=== PATIENT | male | born 1970 | race Caucasian/White ===

== ENCOUNTER → 2018-03-12 | Outpatient (CLI) | payer OTHER | LOC: M.CT 14:40 | DX: R10.9 Unspecified abdominal pain (principal) ==

== ENCOUNTER 2021-08-21 23:47 | Inpatient (IN) | payer OTHER ==
[~2021-08-21] VITALS: Ht 182.9 cm; Wt 94.4 kg
[2021-08-21 23:53] VITALS: BP 138/83
[2021-08-21] MEDS ORDERED: NOHOMEMEDICATIONS (23:58)
[2021-08-21] MEDS ORDERED: ALBUTEROL2.5 MG/0.1 INH (23:59)
[2021-08-22 00:27] LABS: ABSOLUTE LYMPHOCYTES 0.4 thou/uL (0.8-5.3); ABSOLUTE MONOCYTES 0.6 thou/uL (0.0-1.2); ABSOLUTE NEUTROPHILS 2.8 thou/uL (1.6-8.1); BASOPHILS 0.2 %; HEMATOCRIT 51.7 % (42.0-52.0); HEMOGLOBIN 17.5 gm/dL (14.0-18.0); LYMPHOCYTES 10.7 %; MCH 29.7 pg (26.0-34.0); MCHC 33.9 g/dL (28.0-37.0); MCV 87.7 fL (80.0-100.0); MONOCYTES 15.1 %; MPV 6.5 fl. (7.2-11.1); NUCLEATED RBCS 0 /100WBC; PLATELET COUNT* 148 thou/uL (150-400); RBC 5.89 mil/uL (4.50-6.00); RDW-CV 13.6 % (10.5-14.5); WBC 3.8 thou/uL (4.0-11.0)
[2021-08-22 00:40] LABS: CALCIUM 8.2 mg/dL (8.5-10.1); CREATININE 1.5 mg/dL (0.6-1.3); POTASSIUM 4.4 mmol/L (3.5-5.1)
[2021-08-22 00:44] LABS: ALBUMIN 3.2 g/dL (3.4-5.0); MAGNESIUM 2.1 mg/dL (1.8-2.4); TOTAL BILIRUBIN 0.7 mg/dL (<0.1-1.0); TOTAL PROTEIN 7.1 g/dL (6.4-8.2)
[2021-08-22 00:44] LABS: URINE BILIRUBIN NEGATIVE (Negative); URINE BLOOD 3+ (Negative); URINE COLOR YELLOW; URINE GLUCOSE-RANDOM NEGATIVE (Negative); URINE KETONES 2+ (Negative); URINE LEUKOCYTES-REFLEX NEGATIVE (Negative); URINE NITRITE-REFLEX NEGATIVE (Negative); URINE PROTEIN 2+ (Negative); URINE SPECIFIC GRAVITY 1.025 (1.005-1.030)
[2021-08-22 00:45] LABS: URINE CLARITY SL HAZY
[2021-08-22 00:51] LABS: INFLUENZA A ANTIGEN Negative (Negative); INFLUENZA B ANTIGEN Negative (Negative)
[2021-08-22 00:54] LABS: BACTERIA-REFLEX >30 Many /HPF (None Seen); CASTS None Seen /LPF (None Seen); MUCUS 4-6 Moderate strn/LPF (None Seen); SQUAMOUS 0-3 Few /LPF (0-3); URINE WBC-REFLEX 6-15 Few /HPF (0-5); WBC CLUMPS Few (None Seen)
[2021-08-22 00:55] LABS: CRYSTALS None Seen /LPF (None Seen)
[2021-08-22 01:37] LABS: BE 0.7 mmol/L (-2 to +3); PCO2 35.6 mmHg (35.0-45.0); PO2 64.4 mmHg (75.0-100.0); pH 7.449 (7.340-7.450)
--- NOTE | 2021-08-22 01:57 | NUR ---
WITINESSED WITH DR BRIDGES PT STATING THAT HE DOES NOT WANT TO BE INTUBATED. DR BRIDGES ASKED IF SHE COULD DISCUSS DECISION WITH , HE STATED THAT IT DOESN'T MATTER WHAT SHE SAYS, ITS HIS DECISION.
[2021-08-22 05:40] VITALS: BP 130/82
[2021-08-22 06:30] VITALS: BP 151/97
--- NOTE | 2021-08-22 07:48 | NUR ---
RECEIVED REPORT FROM KENZIE COLÓN. PT TRANSFERRED TO 104. PT A&OX4. VSS. PIPE FITTINGS MOLDER IN PLACE. ADMISSION HISTORY & PHYSICAL ASSESSMENT COMPLETED AND CHARTED. PT ON BIPAP 100%. PT TRACING ST ON TELE. ORIENTED TO ROOM & CALL LIGHT. MAINTAINED ON ENHANCED PRECAUTIONS.
[2021-08-22 08:00] VITALS: BP 147/93
[2021-08-22 12:00] VITALS: BP 137/95
[2021-08-22 13:49] LABS: ABSOLUTE LYMPHOCYTES 0.4 thou/uL (0.8-5.3); ABSOLUTE MONOCYTES 0.2 thou/uL (0.0-1.2); ABSOLUTE NEUTROPHILS 2.3 thou/uL (1.6-8.1); BASOPHILS 0.1 %; HEMATOCRIT 50.6 % (42.0-52.0); HEMOGLOBIN 16.8 gm/dL (14.0-18.0); LYMPHOCYTES 14.5 %; MCH 29.5 pg (26.0-34.0); MCHC 33.3 g/dL (28.0-37.0); MCV 88.7 fL (80.0-100.0); MONOCYTES 8.1 %; MPV 6.7 fl. (7.2-11.1); NUCLEATED RBCS 1 /100WBC; PLATELET COUNT* 163 thou/uL (150-400); POLYS 77.3 %; RBC 5.71 mil/uL (4.50-6.00); RDW-CV 13.4 % (10.5-14.5)
--- NOTE | 2021-08-22 13:58 | NUR ---
CM ASSESSMENT ASSESSMENT COMPLETED WITH PT'S (MANOJ KELLER - [phone]).PT RESIDES WITH AND TWO CHILDREN. PT SEEKING TO RETURN HOME UPON DC. PT HAS NO HX OF DME. PT IS INDEPENDENTT WITH ADLS. PT HAS NO HX WITH REHAB, SKILLED OR SERVICES. PT NOT MEDICALLY CLEAR TO DC YET. CM TO CONTINUE TO FOLLOW FOR DC PLANNING NEEDS.
[2021-08-22 14:23] LABS: ALBUMIN 3.1 g/dL (3.4-5.0); CALCIUM 8.2 mg/dL (8.5-10.1); CREATININE 1.2 mg/dL (0.6-1.3); POTASSIUM 4.5 mmol/L (3.5-5.1); TOTAL BILIRUBIN 0.6 mg/dL (<0.1-1.0); TOTAL PROTEIN 6.7 g/dL (6.4-8.2)
--- NOTE | 2021-08-22 15:03 | NUR ---
Infection Control: Per [facility] Dept. patient has a positive Covid PCR test from 08/18/2021.
--- NOTE | 2021-08-22 15:30 | EKG ---
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1970 Requested By: Brisa Gutierrez Order Number: [id number] MD: Jet Condon Measurements Intervals [place] Rate: 119 P: 41 [place]: 138 QRS: -17 QRSD: 87 T: -8 QT: 288 QTc: 406 Interpretive Statements Sinus tachycardia Borderline left axis deviation Borderline T abnormalities, inferior leads Baseline wander in lead(s) I,III,aVR,aVL,V3 No previous ECG available for comparison Electronically Signed On 08-22-2021 15:30:38 MANAGER TRANSPORT by Jet Condon [email or web address] <ELECTRONICALLY SIGNED> By: Jet Condon MD, FACC 08/22/21 1530 2346 2346 Jet Condon MD, FACC /EPI
[2021-08-22 18:54] VITALS: BP 137/95
--- NOTE | 2021-08-22 19:53 | NUR ---
I ASSUMED CARE OF THE PATIENT AT 0700. HE IS ALERT AND ORIENTED X4 AND IS UP WITH SBC TO THE CHAIR AND COMMODE. BED IS IN THE LOW LOCKED POSITION AND CALL LIGHT IS IN REACH. ISOLATION IS MAINTAINED. BLOOD GLUCOSE IS MONITORED AND HE IS ENCOURAGED TO REPOSITION EVERY 2 HOURS. LOTS OF EDUCATION WAS DONE IN REGARDS TO OXYGENATION WITH SEJAL AND PATIENT AGREES TO USE IS AND MOVE AROUND THE ROOM. PRN MEDS ARE USED FOR PARTIAL RELIEF OF PAIN. HOURLY ROUNDING IS COMPLETED AND PATIENT NEEDS ARE MET. WE WERE BETWEEN THE HEATED HIGH FLOW AND BIPAP ALL DAY, ATTEMPTING TO ACHEIVE A SAT OF 90% OR GREATER. PATIENT HAD 3 LOOSE STOOLS TODAY. DIET WAS DOWNGRADED TO CLEAR UNTIL WE SEE HOW HE TOLERATES IT. REPEAT CHEST XRAY WAS COMPLETED. PCR AND MRSA SWABS WERE SENT. WILL CONTINUE TO MONITOR.
[2021-08-22 20:00] VITALS: BP 127/82
--- NOTE | 2021-08-22 21:35 | CON ---
[address] [address] CONSULTATION Name: DILIP KELLERBEN Room: [address] IN M.R.#: [id number] Admission: 08/22/21 Attend Phys: Dick Carmichael MD Discharge: Date of : 74 Report #: [id number] THIS REPORT FOR: cc: MADAI RICHARDSON NP, KATHERINE NP Pervez, Adeel MD ~ DATE OF CONSULTATION: 08/22/2021 REQUESTING PHYSICIAN: Dr. Murillo. INDICATION FOR CONSULTATION: Acute hypoxemic respiratory failure secondary to COVID-19. HISTORY OF PRESENT ILLNESS: This is a 50-year-old gentleman. He says that he is a lifetime nonsmoker. He is not vaccinated for COVID; however, in September, he was reported to have had COVID. The patient states that at that time he got remdesivir and had throat swelling when he was given remdesivir. He is now admitted again with COVID-19. He states that he had 2 outpatient tests for COVID performed, which were positive for antigen. Upon admission, he however is negative. He has been significantly short of breath. He has been coughing. He says he is bringing up thick yellow sputum. He earlier has been on BiPAP all night as he was not maintaining O2 saturation on a heated high-flow nasal cannula. We were able to take him off the BiPAP this morning; however, he continues to remain on 100% FiO2 with 50 liters flow and is barely oxygenating at 90-91% with this. He; however, does appear to be maintained with this therapy at this time. He does not have swelling of lower extremities. There is no calf pain. He reports that he had diarrhea as well as gagging and vomiting earlier. He does report that he had headaches and had nasal congestion. He reports having had fever and chills recently. He has had poor appetite and says that he feels weak. REVIEW OF SYSTEMS: For 12 points is negative except as mentioned above. PAST MEDICAL HISTORY: COVID in September of this year. Otherwise, unremarkable. SOCIAL HISTORY: Lifetime nonsmoker. No known history of heavy alcohol use or illegal drug use. CURRENT MEDICATIONS: List in [facility] reviewed. HOME MEDICATIONS: List in [facility] reviewed. ALLERGIES: The patient states that his throat swelled up and he [place] [address] CONSULTATION Name: DILIP KELLERBEN Room: [address] IN [facility]#: [id number] Admission: 08/22/21 Attend Phys: Dick Carmichael MD Discharge: Date of : 74 Report #: [id number] FAMILY HISTORY: No pertinent family history. PHYSICAL EXAMINATION: GENERAL: He is alert, awake and oriented. VITAL SIGNS: He is on 100% FiO2 with 55 liters flow, heated high-flow nasal cannula, O2 saturation has been varying between 90% and 94%, respiratory rate in the low 20s, heart rate is 80, blood pressure is 147/93. HEENT: Head is normocephalic and atraumatic. NECK: Does not show raised JVP, asymmetry, mass or lymph nodes. CHEST: Symmetrical expansion on inspection and palpation. On auscultation, breath sounds are bilaterally equal, but decreased. Expirations are prolonged, but I do not hear any added sounds. The patient was coughing between sentences when I examined him. HEART: Regular. There is no murmur. ABDOMEN: Soft and nontender. EXTREMITIES: Lower extremities show no edema and no calf tenderness. SKIN: Dry and intact. NEUROLOGIC: Moves all extremities bilaterally equally and spontaneously with no focal deficit identified. DIAGNOSTIC DATA: The patient did have a chest x-ray performed last night. I reviewed the same and I also repeated a chest x-ray now, there are extensive bilateral infiltrates consistent with COVID-19. There is also a dense infiltrate in the left lung base, which is suspicious of a secondary bacterial infection. LABORATORY DATA: The patient's lab work is in [facility], this is reviewed from last night. I ordered repeat labs now, which are pending. Creatinine last night was 1.5. The patient has received IV fluids since then. ASSESSMENT AND PLAN: 1. Acute hypoxemic respiratory failure secondary to COVID-19. For now, we will continue with BiPAP while asleep and as needed. We will keep him on heated high-flow nasal cannula otherwise. The patient; however, is requiring 100% FiO2 at this time and therefore there will be a possibility that he declines and requires endotracheal intubation. I discussed this with patient. He states that he does not want to be placed on the ventilator and does not believe in those. When asked if we feel that he is not likely to survive if not placed on the ventilator, whether he will want us to proceed, he states that he may change his mind at that point and we can ask him about it; however, he states that if we are not able to communicate with him and he wishes that we not put him on the ventilator, even in those circumstances. 2. COVID-19. THE PATIENT REPORTS ALLERGY TO REMDESIVIR. He does have some [facility] [address] [place] [address] CONSULTATION Name: DILIP KELLER Room: [address] IN M.R.#: [id number] Admission: 08/22/21 Attend Phys: Dick Carmichael MD Discharge: Date of : 74 Report #: [id number] bronchospasm as well and therefore I will increase his dexamethasone to 10 mg IV b.i.d. Recommend Actemra. Unfortunately, not available. I do not feel strongly either way regarding administering or holding off on convalescent plasma. 3. Extensive bilateral infiltrates. Considering his very high FiO2, I decided to broaden antibiotic coverage to cefepime, linezolid and azithromycin. We will do a sputum culture. Other cultures and serologies are also ordered. 4. Acute renal failure/fluid overload. I do not have baseline creatinine regardless suspicion is that the rise in creatinine last night to 1.5 is acute. I ordered repeat labs now and then we will decide as to whether we can give him Lasix. If there is still elevation in creatinine, then I will be inclined to obtain a renal ultrasound. 5. Bronchospasm. Dexamethasone increased to 10 q.12 hours, also on nebulized bronchodilators. I may in fact consider giving him additional steroid as well as he does appear to be bronchospastic. He is on cough suppressant medications. Continue other medications. However, decided to hold off on giving him narcotic if feasible due to very high FiO2. 6. Deep vein thrombosis prophylaxis. Agree with intermediate dose of Lovenox. 7. Gastrointestinal prophylaxis, Protonix. 8. Hyperglycemia, insulin sliding scale. The patient is critically ill at this time. Total time spent providing critical care to this patient today exceeds 41 minutes. <ELECTRONICALLY SIGNED> By: Spencer Ohara MD 08/22/21 2135 1229 1910Spencer Ohara MD /nt
[2021-08-23] VITALS: BP 145/88
[2021-08-23 02:06] LABS: GLYCOHEMOGLOBIN (HGB A1C) 5.4 % (4.8-5.6)
[2021-08-23 04:28] LABS: HEMATOCRIT 47.1 % (42.0-52.0); MCH 29.6 pg (26.0-34.0); MCV 87.2 fL (80.0-100.0); MPV 6.6 fl. (7.2-11.1); RBC 5.4 mil/uL (4.50-6.00); RDW-CV 13.4 % (10.5-14.5); WBC 5.9 thou/uL (4.0-11.0)
[2021-08-23 04:29] VITALS: BP 133/93
[2021-08-23 04:32] LABS: ALBUMIN 2.8 g/dL (3.4-5.0); CALCIUM 8.1 mg/dL (8.5-10.1); CREATININE 1.2 mg/dL (0.6-1.3); MAGNESIUM 2.3 mg/dL (1.8-2.4); POTASSIUM 4.3 mmol/L (3.5-5.1); TOTAL BILIRUBIN 0.6 mg/dL (<0.1-1.0); TOTAL PROTEIN 6.8 g/dL (6.4-8.2)
--- NOTE | 2021-08-23 07:57 | NUR ---
ASSUMED CARE OF PT AFTER REPORT AT 1930. PT A&OX4. VSS. PHYSICAL ASSESSMENT COMPLETED AND CHARTED. PT ON O2 HHFNC 100%/55L/BIPAP 70%. PT TRACING SR/ST ON TELE. PT UPSTANDBY TO BSC. CALL LIGHT WITHIN REACH.
[2021-08-23 08:00] VITALS: BP 134/82
[2021-08-23 11:30] VITALS: BP 139/88
--- NOTE | 2021-08-23 15:35 | NUR ---
CM FOLLOWUP PT NOT YET MEDICALLY CLEAR. PT COVID POSITIVE WITH WORSENING O2 NEEDS. WHEN MEDICALLY CLEAR, PT SEEKING DC HOME. CM TO FOLLOW FOR DC PLANNING NEEDS.
[2021-08-23 16:00] VITALS: BP 142/81
[2021-08-23 20:00] VITALS: BP 141/87
[2021-08-24] VITALS (14 sets, daily range): BP systolic 101–137; BP diastolic 55–86
[2021-08-24 05:44] LABS: MPV 7.5 fl. (7.2-11.1)
[2021-08-24 05:45] LABS: HEMATOCRIT 50.4 % (42.0-52.0); HEMOGLOBIN 16.7 gm/dL (14.0-18.0); MCH 29.5 pg (26.0-34.0); MCHC 33.1 g/dL (28.0-37.0); MCV 89.3 fL (80.0-100.0); NUCLEATED RBCS 0 /100WBC; RBC 5.64 mil/uL (4.50-6.00); RDW-CV 13.5 % (10.5-14.5); WBC 12.7 thou/uL (4.0-11.0)
[2021-08-24 06:00] LABS: ALBUMIN 2.9 g/dL (3.4-5.0); CALCIUM 8.3 mg/dL (8.5-10.1); CREATININE 1.2 mg/dL (0.6-1.3); MAGNESIUM 2.7 mg/dL (1.8-2.4); POTASSIUM 4.1 mmol/L (3.5-5.1); TOTAL BILIRUBIN 0.8 mg/dL (<0.1-1.0)
[2021-08-24 07:31] LABS: ABSOLUTE LYMPHOCYTES 0.3 thou/uL (0.8-5.3); ABSOLUTE MONOCYTES 0.9 thou/uL (0.0-1.2); ABSOLUTE NEUTROPHILS 11.6 thou/uL (1.6-8.1); PLATELET ESTIMATE ADEQUATE
[2021-08-24 07:32] LABS: PLATELET COUNT* 225 thou/uL (150-400)
--- NOTE | 2021-08-24 08:04 | NUR ---
ASSUMED CARE OF PT AFTER REPORT AT 1930. PT A&OX4. VSS. PHYSICAL ASSESSMENT COMPLETED AND CHARTED. PT ON HHFNC 100%/55L+NRB 15L/BIPAP 100%. PT STILL HAVONG COUGHING SPELL WITH EPISODES OF DESATURATION 70'S-80'S-DR BOOTH MADE AWARE WITH NEW ORDERS.CALL LIGHT WITHIN REACH.
--- NOTE | 2021-08-24 12:57 | NUR ---
Pt is now being transferred to ICU and will be placed on a vent. In team meeting it was requested that we provide DPOA paperwork before he is placed on the vent to see if he would like to complete to have someone make healthcare decisions for him. Due to patient being Covid + - provided paperwork to RN and he is to discuss with patient.
--- NOTE | 2021-08-24 15:35 | NUR ---
CM FOLLOWUP PT NOT YET MED CLEAR AND TRANSFERRED TO ICU FOR INTUBATION. PT COMPLETED DPOA AND LISTED MANOJ KELLER [phone]. CM TO FOLLOW.
[2021-08-24 17:25] LABS: BE 2.6 mmol/L (-2 to +3); PCO2 48.5 mmHg (35.0-45.0); PO2 82.3 mmHg (75.0-100.0); pH 7.389 (7.340-7.450)
--- NOTE | 2021-08-24 18:42 | NUR ---
PT RECEIVED ON ON 4L N/C. AOX4. NO COMPLAINTS OF PAIN. ORDERS PLACED FOR NUKEMED SCAN AND CT. AFTER TRANSPORT PT HAD UPPER AIRWAY GURGLING. NTS SUCTIONING DONE - BILLIOUS APPEARING SECRETIONS. PHYSCISIAN NOTIFIED AND AT BEDSIDE. SPOKE WITH PT REGARDING INTUBATION STATUS - SEE NOTE. ORDERS CHANGED TO DNI. PT PLACED ON BIPAP PER ORDER. THORACENTESIS ORDERED - UNABLE TO COMPLETE PER IR TEAM FLUID COLLECTION WAS TOO SMALL. ATTEMPTS MADE TO REACH FAMILY TO UPDATE ON PT CONDITION - NO RESPONSE. LOOSE GREEN BM, TACHY & V-PACED: TEAM NOTIFIED. UOP GOOD. POTASSIUM BEING REPLACED. WILL CONTINUE TO MONITOR.
[2021-08-24 23:06] LABS: MYCOPLASMA PNEUMONIA IgG 152 U/mL (0-99); MYCOPLASMA PNEUMONIA IgM <770 U/mL (0-769)
[2021-08-25] VITALS (41 sets, daily range): BP systolic 100–146; BP diastolic 43–91
--- NOTE | 2021-08-25 04:04 | NUR ---
ASSUMED CARE AT 1900H, ON VENT AT 100% AND TOLERATED. SEDATED WITH FENTANYL 100MICS AND PROPOFOL 40MICS. PT WITHDREW TO PAIN AND WILL HAVE A COUGHING FIT AFTER SUCTONING. HE TRIED TO REACH FOR HIS ETT. RESTRAIN WELL SECURED. NO FEVER AND NO DISTRESS. CONTINUE MONITORING AND TOWARDS GOALS.
--- NOTE | 2021-08-25 04:13 | NUR ---
UPDATE GIVEN TO AND SHE'S REQUESTING UPDATE FROM DOCTORS. SHE'S ALSO ASKING IF WHEN PT CAN BE OUT OF ISOLATION. ACCORDING TO HER, SHE'LL BE AVAILABLE THE WHOLE DAY.
[2021-08-25 05:45] LABS: ABSOLUTE LYMPHOCYTES 0.1 thou/uL (0.8-5.3); ABSOLUTE MONOCYTES 0.7 thou/uL (0.0-1.2); ABSOLUTE NEUTROPHILS 6.5 thou/uL (1.6-8.1); BASOPHILS 0.2 %; HEMATOCRIT 45.5 % (42.0-52.0); HEMOGLOBIN 15.1 gm/dL (14.0-18.0); LYMPHOCYTES 1.9 %; MCH 29.4 pg (26.0-34.0); MCHC 33.2 g/dL (28.0-37.0); MCV 88.6 fL (80.0-100.0); MONOCYTES 8.9 %; MPV 6.8 fl. (7.2-11.1); NUCLEATED RBCS 0 /100WBC; PLATELET COUNT* 263 thou/uL (150-400); RBC 5.13 mil/uL (4.50-6.00); RDW-CV 13.5 % (10.5-14.5); WBC 7.3 thou/uL (4.0-11.0)
[2021-08-25 06:01] LABS: PHOSPHORUS* 4.5 mg/dL (2.5-4.9)
[2021-08-25 06:02] LABS: ALBUMIN 2.5 g/dL (3.4-5.0); CALCIUM 7.8 mg/dL (8.5-10.1); CREATININE 1.5 mg/dL (0.6-1.3); MAGNESIUM 3.2 mg/dL (1.8-2.4); POTASSIUM 4.3 mmol/L (3.5-5.1); TOTAL BILIRUBIN 0.6 mg/dL (<0.1-1.0); TOTAL PROTEIN 6.3 g/dL (6.4-8.2)
[2021-08-25 08:41] LABS: BE 4.9 mmol/L (-2 to +3); PCO2 38.2 mmHg (35.0-45.0); pH 7.489 (7.340-7.450)
--- NOTE | 2021-08-25 09:16 | NUR ---
HSAWN Daly/Anil is assigned to pt for discharge planning needs if help required, Notified CM
--- NOTE | 2021-08-25 18:34 | NUR ---
RECIEVED REPORT FROM NAFISA SHARP RN. ETT 7.5 27 @LIP AND CONNECTED TO VENTILATOR. OGT CONNECTED TO LIS.. OGT AT 60CM. SANTIAGO INTACT AND PATENT DRAIING LAURA URINE TO BEDSIDE BAG. NSR ON MONITOR, MONITORS INTACT, NO ACUTE DISTRESS NOTED. 1600 PT PRONED ORDERED AND TOLERATED WELL. WILL CONTINUE TO MONITOR
[2021-08-26] VITALS (61 sets, daily range): BP systolic 108–154; BP diastolic 67–102
[2021-08-26 04:06] LABS: ABSOLUTE LYMPHOCYTES 0.2 thou/uL (0.8-5.3); ABSOLUTE MONOCYTES 0.8 thou/uL (0.0-1.2); ABSOLUTE NEUTROPHILS 8.2 thou/uL (1.6-8.1); BASOPHILS 0.1 %; HEMOGLOBIN 15.3 gm/dL (14.0-18.0); LYMPHOCYTES 2.1 %; MCH 28.9 pg (26.0-34.0); MCHC 33.3 g/dL (28.0-37.0); MCV 86.6 fL (80.0-100.0); MONOCYTES 8.3 %; NUCLEATED RBCS 0 /100WBC; PLATELET COUNT* 291 thou/uL (150-400); POLYS 89.5 %; RBC 5.31 mil/uL (4.50-6.00); RDW-CV 13.4 % (10.5-14.5); WBC 9.1 thou/uL (4.0-11.0)
[2021-08-26 04:27] LABS: PHOSPHORUS* 2.9 mg/dL (2.5-4.9)
[2021-08-26 04:28] LABS: ALBUMIN 2.5 g/dL (3.4-5.0); CALCIUM 7.7 mg/dL (8.5-10.1); CREATININE 1.3 mg/dL (0.6-1.3); MAGNESIUM 3.4 mg/dL (1.8-2.4); POTASSIUM 4.2 mmol/L (3.5-5.1); TOTAL BILIRUBIN 0.7 mg/dL (<0.1-1.0); TOTAL PROTEIN 6.3 g/dL (6.4-8.2)
[2021-08-26 07:42] LABS: BE 7.7 mmol/L (-2 to +3); PCO2 36.3 mmHg (35.0-45.0); pH 7.541 (7.340-7.450)
--- NOTE | 2021-08-26 13:01 | NUR ---
Pt continues to be in the ICU but is slowly improving. He continues to be on a vent but has decreased to 50% Fio2. Per previous manager social responsibility notes - pt did completed DPOA paperwork with designating to make decisions in regards to his care. CM to continue to follow for discharge planning.
[2021-08-27] VITALS (13 sets, daily range): BP systolic 123–182; BP diastolic 65–113
[2021-08-27 05:31] LABS: HEMATOCRIT 46.2 % (42.0-52.0); HEMOGLOBIN 15.3 gm/dL (14.0-18.0); MCH 29.4 pg (26.0-34.0); MCHC 33.1 g/dL (28.0-37.0); MCV 88.8 fL (80.0-100.0); NUCLEATED RBCS 0 /100WBC; PLATELET COUNT* 295 thou/uL (150-400); RBC 5.21 mil/uL (4.50-6.00); RDW-CV 13.5 % (10.5-14.5); WBC 10.1 thou/uL (4.0-11.0)
[2021-08-27 05:43] LABS: ALBUMIN 2.2 g/dL (3.4-5.0); CALCIUM 7.6 mg/dL (8.5-10.1); MAGNESIUM 2.8 mg/dL (1.8-2.4); PHOSPHORUS* 3.9 mg/dL (2.5-4.9); TOTAL BILIRUBIN 0.5 mg/dL (<0.1-1.0); TOTAL PROTEIN 5.9 g/dL (6.4-8.2)
[2021-08-27 06:25] LABS: ABSOLUTE LYMPHOCYTES 0.9 thou/uL (0.8-5.3); ABSOLUTE NEUTROPHILS 9.2 thou/uL (1.6-8.1)
[2021-08-27 06:26] LABS: PLATELET ESTIMATE ADEQUATE
[2021-08-28] VITALS (17 sets, daily range): BP systolic 123–163; BP diastolic 70–85
[2021-08-28 03:37] LABS: HEMATOCRIT 49.3 % (42.0-52.0); HEMOGLOBIN 16.2 gm/dL (14.0-18.0); MCH 29.1 pg (26.0-34.0); MCHC 32.9 g/dL (28.0-37.0); MCV 88.5 fL (80.0-100.0); MPV 6.9 fl. (7.2-11.1); RBC 5.57 mil/uL (4.50-6.00); RDW-CV 13.4 % (10.5-14.5); WBC 9.9 thou/uL (4.0-11.0)
[2021-08-28 03:58] LABS: CALCIUM 8.3 mg/dL (8.5-10.1); CREATININE 1.1 mg/dL (0.6-1.3); POTASSIUM 5.3 mmol/L (3.5-5.1)
[2021-08-28 05:14] LABS: BE 3.7 mmol/L (-2 to +3); PCO2 45.2 mmHg (35.0-45.0); PO2 100.4 mmHg (75.0-100.0); pH 7.424 (7.340-7.450)
--- NOTE | 2021-08-28 19:26 | NUR ---
On arrival pt RASS 0, -1. Provider notified, precedex stopped and versed started to achieve RASS goal of -2. Pt intermittenly jesus while precedex infusing - HR improved after precedex stopped. No BM this shift, UOP adequate, updated multiple times, VSS, Tolerating TF. Febrile - tylenol given X1
[2021-08-29] VITALS (24 sets, daily range): BP systolic 133–204; BP diastolic 80–117
[2021-08-29 04:43] LABS: ABSOLUTE LYMPHOCYTES 0.3 thou/uL (0.8-5.3); ABSOLUTE MONOCYTES 0.7 thou/uL (0.0-1.2); ABSOLUTE NEUTROPHILS 9.4 thou/uL (1.6-8.1); EOSINOPHILS 0.1 %; HEMATOCRIT 48.6 % (42.0-52.0); HEMOGLOBIN 16.1 gm/dL (14.0-18.0); LYMPHOCYTES 3.2 %; MCH 29.4 pg (26.0-34.0); MCHC 33.1 g/dL (28.0-37.0); MCV 88.8 fL (80.0-100.0); MONOCYTES 6.9 %; MPV 7.1 fl. (7.2-11.1); NUCLEATED RBCS 0 /100WBC; PLATELET COUNT* 257 thou/uL (150-400); POLYS 89.8 %; RBC 5.47 mil/uL (4.50-6.00); RDW-CV 13.1 % (10.5-14.5); WBC 10.5 thou/uL (4.0-11.0)
[2021-08-29 05:35] LABS: BE 1.9 mmol/L (-2 to +3); PO2 78.5 mmHg (75.0-100.0); pH 7.361 (7.340-7.450)
[2021-08-29 05:38] LABS: ALBUMIN 2.2 g/dL (3.4-5.0); CALCIUM 8.2 mg/dL (8.5-10.1); POTASSIUM 5.2 mmol/L (3.5-5.1); TOTAL BILIRUBIN 0.7 mg/dL (<0.1-1.0); TOTAL PROTEIN 5.7 g/dL (6.4-8.2)
[2021-08-29 06:05] LABS: PCO2 51.8 mmHg (35.0-45.0)
--- NOTE | 2021-08-29 15:53 | NUR ---
Pt remains in the ICU on a vent at 90% Fi02. They are attempting weaning trials today. Waiting for removal of vent for therapies to be ordered to see if pt will need ARU vs SNF vs HH. CM to continue to follow for discharge planning.
[2021-08-30] VITALS (22 sets, daily range): BP systolic 111–173; BP diastolic 64–104
[2021-08-30 07:46] LABS: HEMATOCRIT 49.8 % (42.0-52.0); HEMOGLOBIN 16.2 gm/dL (14.0-18.0); MCHC 32.5 g/dL (28.0-37.0); MCV 89.1 fL (80.0-100.0); MPV 8.4 fl. (7.2-11.1); RBC 5.58 mil/uL (4.50-6.00); RDW-CV 13.1 % (10.5-14.5); WBC 14.7 thou/uL (4.0-11.0)
[2021-08-30 07:54] LABS: CREATININE 0.9 mg/dL (0.6-1.3); MAGNESIUM 2.2 mg/dL (1.8-2.4); PHOSPHORUS* 3.9 mg/dL (2.5-4.9); POTASSIUM 4.7 mmol/L (3.5-5.1)
[2021-08-30 13:57] LABS: BE 3.3 mmol/L (-2 to +3); PCO2 49.9 mmHg (35.0-45.0); PO2 76.1 mmHg (75.0-100.0)
--- NOTE | 2021-08-30 15:20 | NUR ---
PER VERBAL ORDER OF DR. NAIDU PRONE PT. PT WAS PRONED AT 1315. SP02 IMPROVED GREATLY WITH PRONING. PRIOR TO PRONING SP02 WAS IN THE LOW 90'S, WITH PT PRONED SP02 IS CURRENTLY 97%. PT TOLERATED TURN WELL, VITAL SIGNS REMAINED STABLE.
[2021-08-31] VITALS (11 sets, daily range): BP systolic 111–135; BP diastolic 69–82
[2021-08-31 05:06] LABS: HEMATOCRIT 50.7 % (42.0-52.0); HEMOGLOBIN 16.8 gm/dL (14.0-18.0); MCH 29.4 pg (26.0-34.0); MPV 7.6 fl. (7.2-11.1); RBC 5.7 mil/uL (4.50-6.00); WBC 19.5 thou/uL (4.0-11.0)
[2021-08-31 05:21] LABS: CREATININE 0.9 mg/dL (0.6-1.3); POTASSIUM 5.5 mmol/L (3.5-5.1)
--- NOTE | 2021-08-31 09:57 | NUR ---
[facility] can contact for discharge assistance if needed, no ph number given. Also shared that in network services were Sara, [facility], or [facility] if needed. Notified all CM as pt presently in ICU bed
[2021-08-31 12:00] LABS: BE 2.1 mmol/L (-2 to +3); PCO2 49.8 mmHg (35.0-45.0); PO2 83.7 mmHg (75.0-100.0); pH 7.374 (7.340-7.450)
--- NOTE | 2021-08-31 15:31 | NUR ---
Pt remains in the ICU sedated and vented (90% Fi02). Continue to try weaning trials. CM to continue to follow for discharge planning.
[2021-09-01] VITALS (11 sets, daily range): BP systolic 110–139; BP diastolic 68–86
--- NOTE | 2021-09-01 04:08 | NUR ---
ASSUMED CARE AT 1910H, ON VENT AT 100% AND TOLERATED. SEDATED WITH PROPOFOL, VERSED AND FENTANYL. PT TAKING SMALL BREATH, VERSED TITRATED UP. NO FEVER AND NO DISTRESS NOTED. CONTINUE MONITORING AND TOWARDS GOALS. ALL SEDATION WERE IN MAX DOSE.
[2021-09-01 06:54] LABS: HEMATOCRIT 48.5 % (42.0-52.0); HEMOGLOBIN 15.7 gm/dL (14.0-18.0); MCH 29.1 pg (26.0-34.0); MCHC 32.4 g/dL (28.0-37.0); MCV 89.8 fL (80.0-100.0); MPV 8.4 fl. (7.2-11.1); RBC 5.41 mil/uL (4.50-6.00); RDW-CV 13.3 % (10.5-14.5); WBC 19.9 thou/uL (4.0-11.0)
[2021-09-01 07:04] LABS: CALCIUM 8.1 mg/dL (8.5-10.1); POTASSIUM 4.7 mmol/L (3.5-5.1)
[2021-09-02] VITALS (19 sets, daily range): BP systolic 120–151; BP diastolic 79–94
[2021-09-02 04:46] LABS: HEMATOCRIT 49.9 % (42.0-52.0); HEMOGLOBIN 16.4 gm/dL (14.0-18.0); MCHC 32.9 g/dL (28.0-37.0); MCV 88.1 fL (80.0-100.0); MPV 7.8 fl. (7.2-11.1); RBC 5.66 mil/uL (4.50-6.00); RDW-CV 13.3 % (10.5-14.5); WBC 21.4 thou/uL (4.0-11.0)
[2021-09-02 05:01] LABS: CALCIUM 8.1 mg/dL (8.5-10.1); CREATININE 0.9 mg/dL (0.6-1.3); POTASSIUM 4.9 mmol/L (3.5-5.1)
[2021-09-03] VITALS (21 sets, daily range): BP systolic 111–147; BP diastolic 67–93
[2021-09-03 03:07] LABS: HEMATOCRIT 50.7 % (42.0-52.0); HEMOGLOBIN 16.2 gm/dL (14.0-18.0); MCH 28.8 pg (26.0-34.0); MPV 8.6 fl. (7.2-11.1); RBC 5.64 mil/uL (4.50-6.00); RDW-CV 13.5 % (10.5-14.5); WBC 17.6 thou/uL (4.0-11.0)
[2021-09-03 04:05] LABS: CALCIUM 8.1 mg/dL (8.5-10.1); CREATININE 0.7 mg/dL (0.6-1.3); POTASSIUM 4.4 mmol/L (3.5-5.1)
[2021-09-04] VITALS (17 sets, daily range): BP systolic 104–153; BP diastolic 61–98
[2021-09-04 04:40] LABS: HEMATOCRIT 49.4 % (42.0-52.0); HEMOGLOBIN 16.2 gm/dL (14.0-18.0); MCH 29.1 pg (26.0-34.0); MCHC 32.8 g/dL (28.0-37.0); MCV 88.7 fL (80.0-100.0); MPV 8.3 fl. (7.2-11.1); NUCLEATED RBCS 0 /100WBC; PLATELET COUNT* 156 thou/uL (150-400); RBC 5.58 mil/uL (4.50-6.00); RDW-CV 13.7 % (10.5-14.5); WBC 21.3 thou/uL (4.0-11.0)
[2021-09-04 04:55] LABS: ALBUMIN 2.5 g/dL (3.4-5.0); CALCIUM 7.9 mg/dL (8.5-10.1); CREATININE 0.7 mg/dL (0.6-1.3); POTASSIUM 4.7 mmol/L (3.5-5.1); TOTAL BILIRUBIN 1.5 mg/dL (<0.1-1.0); TOTAL PROTEIN 5.1 g/dL (6.4-8.2)
[2021-09-04 05:57] LABS: ABSOLUTE LYMPHOCYTES 0.6 thou/uL (0.8-5.3); ABSOLUTE MONOCYTES 0.4 thou/uL (0.0-1.2); ABSOLUTE NEUTROPHILS 20.2 thou/uL (1.6-8.1)
[2021-09-04 05:58] LABS: PLATELET ESTIMATE ADEQUATE
[2021-09-05] VITALS (23 sets, daily range): BP systolic 85–172; BP diastolic 43–113
[2021-09-05 04:29] LABS: HEMATOCRIT 47.8 % (42.0-52.0); HEMOGLOBIN 15.6 gm/dL (14.0-18.0); MCH 29.1 pg (26.0-34.0); MCHC 32.6 g/dL (28.0-37.0); MCV 89.2 fL (80.0-100.0); MPV 8.3 fl. (7.2-11.1); RBC 5.36 mil/uL (4.50-6.00); RDW-CV 13.5 % (10.5-14.5); WBC 20.5 thou/uL (4.0-11.0)
[2021-09-05 05:16] LABS: ALBUMIN 2.4 g/dL (3.4-5.0); CALCIUM 7.7 mg/dL (8.5-10.1); CREATININE 0.7 mg/dL (0.6-1.3); MAGNESIUM 2.4 mg/dL (1.8-2.4); POTASSIUM 4.6 mmol/L (3.5-5.1); TOTAL BILIRUBIN 1.2 mg/dL (<0.1-1.0)
[2021-09-05 10:11] LABS: BE 2.6 mmol/L (-2 to +3); PCO2 48.1 mmHg (35.0-45.0); pH 7.391 (7.340-7.450)
--- NOTE | 2021-09-05 13:25 | NUR ---
Pt remains in the ICU on a vent with high oxygen needs (70% fi02) and may need a trache/PEG tube. Pt is currently on TPN. If patient needs a Trache/PEG placement will likely need LTACH placement. CM to continue to follow for discharge needs.
--- NOTE | 2021-09-05 14:08 | 2DMMODE ---
[place] [address] 2 D/M-MODE ECHOCARDIOGRAM Name: DILIP KELLERADAMS Room: [address] IN .R.#: [id number] Admission: 08/22/21 Attend Phys: Dick Carmichael, Discharge: Date of : 74 Date of Service: 09/05/21 1408 Report #: [id number] THIS REPORT FOR: cc: MADAI RICHARDSON NP, KATHERINE NP Holkins,Jet Sapp MD [facility] ~ APPROVED REPORT Study performed: 09/05/2021 11:19:02 EXAM: Comprehensive 2D, Doppler, and color-flow Echocardiogram Patient Location: In-Patient Room #: 008 Status: routine BSA: 2.24 HR: 92 bpm BP: 137/84 mmHg Rhythm: NSR Other Information Study Quality: Good Indications resp failure 2D Dimensions IVSd: 11.93 (7-11mm) LVOT Diam: 24.42 (18-24mm) LVDd: 45.29 mm PWd: 11.89 (7-11mm) Ascending Ao: 33.39 (22-36mm) LVDs: 30.87 (25-40mm) Aortic Root: 37.19 mm Volumes Left Atrial Volume (Systole) LA ESV Index: 23.00 mL/m2 Aortic Valve AoV Peak Darwin.: 1.45 m/s AO Peak Gr.: 8.46 mmHg LVOT Max P.75 mmHg AO Mean Gr.: 4.87 mmHg LVOT Mean P.96 mmHg LVOT Max V: 1.30 m/s AO V2 VTI: 24.65 cm LVOT Mean V: 0.78 m/s ALBARO (VTI): 4.00 cm2 LVOT V1 VTI: 21.07 [place] [address] 2 D/M-MODE ECHOCARDIOGRAM Name: DILIP KELLER Room: [address] IN ..#: [id number] Admission: 08/22/21 Attend Phys: Dick Carmichael, Discharge: Date of : 74 Date of Service: 09/05/21 1408 Report #: [id number] Mitral Valve E/A Ratio: 1.36 MV Decel. Time: 201.14 ms MV E Max Darwin.: 0.67 m/s MV PHT: 58.33 ms MVA (PHT): 3.77 cm2 TDI E/Lateral E': 6.70 E/Medial E': 6.70 Medial E' Darwin.: 0.10 m/s Lateral E' Darwin.: 0.10 m/s Pulmonary Valve PV Peak Darwin.: 1.18 m/s PV Peak Gr.: 5.59 mmHg Left Ventricle The left ventricle is normal size. There is normal LV segmental wall motion. Mild to moderate concentric left ventricular hypertrophy. Left ventricular systolic function is normal. The left ventricular ejection fraction is within the normal range. LVEF is 60-65%. Grade I - abnormal relaxation pattern. Right Ventricle The right ventricle is normal size. The right ventricular systolic function is normal. Atria The left atrium size is normal. The right atrium size is normal. Aortic Valve The aortic valve is normal in structure. No aortic regurgitation is present. There is no aortic valvular stenosis. Mitral Valve The mitral valve is normal in structure. Trace mitral regurgitation. No evidence of mitral valve stenosis. Tricuspid Valve The tricuspid valve is normal in structure. Unable to assess PA pressure. Trace tricuspid regurgitation. Pulmonic Valve The pulmonary valve is normal in structure. There is no pulmonic [place] [address] 2 D/M-MODE ECHOCARDIOGRAM Name: DILIP KELLER Room: [address] IN [facility]#: [id number] Admission: 08/22/21 Attend Phys: Dcik Carmichael, Discharge: Date of : 74 Date of Service: 09/05/21 1408 Report #: [id number] Great Vessels The aortic root is normal in size. IVC is normal in size and collapses >50% with inspiration. Pericardium There is no pericardial effusion. <Conclusion> The left ventricle is normal size. Mild to moderate concentric left ventricular hypertrophy. Left ventricular systolic function is normal. The left ventricular ejection fraction is within the normal range. LVEF is 60-65%. Grade I - abnormal relaxation pattern. The right ventricle is normal size. The left atrium size is normal. The aortic valve is normal in structure. The mitral valve is normal in structure. The tricuspid valve is normal in structure. IVC is normal in size and collapses >50% with inspiration. There is no pericardial effusion. There is normal LV segmental wall motion. <ELECTRONICALLY SIGNED> By: Jet Condon MD, FACC 09/05/21 1408 1408 1408 Jet Condon MD, FACC /INF
--- NOTE | 2021-09-05 19:22 | NUR ---
PT CONTINUES ON THE VENT, PRONED AROUND 1330. NO BM THIS SHIFT. TUBE FEEDS RESTARTED AT TRICKLE AND TOLERATING. VSS, WILL CONTINUE TO MONITOR.
[2021-09-06] VITALS (12 sets, daily range): BP systolic 91–158; BP diastolic 51–91
--- NOTE | 2021-09-06 04:14 | NUR ---
ASSUMED CARE AT 1900H, ON VENT AT 60% AND TOLERATED. ON VERSED, FENTANYL AND PROPOFOL DRIP, TITRATED. WITH GAG AND COUGH REFLEX NOTED. UPDATE GIVEN TO SISTER AND . LOW GRADE FEVER, PRN MED GIVEN. UNPRONE PT ARROUNRD 2AM. CONTINUE MONITORING AND TOWARDS GOALS. PROPOFOL AT 40MICS, FENTANYL AT 135MICS AND VERSED AT MAX DOSE.
[2021-09-06 06:05] LABS: ABSOLUTE BASOPHILS 0.3 thou/uL (0.0-0.2); ABSOLUTE LYMPHOCYTES 0.3 thou/uL (0.8-5.3); ABSOLUTE MONOCYTES 1.1 thou/uL (0.0-1.2); ABSOLUTE NEUTROPHILS 18.3 thou/uL (1.6-8.1); BASOPHILS 1.4 %; HEMATOCRIT 47.2 % (42.0-52.0); HEMOGLOBIN 15.6 gm/dL (14.0-18.0); LYMPHOCYTES 1.4 %; MCH 29.2 pg (26.0-34.0); MCV 88.6 fL (80.0-100.0); MONOCYTES 5.3 %; MPV 7.9 fl. (7.2-11.1); NUCLEATED RBCS 0 /100WBC; PLATELET COUNT* 102 thou/uL (150-400); POLYS 91.9 %; RBC 5.33 mil/uL (4.50-6.00); WBC 19.9 thou/uL (4.0-11.0)
[2021-09-06 07:25] LABS: ALBUMIN 2.6 g/dL (3.4-5.0); CALCIUM 8.1 mg/dL (8.5-10.1); CREATININE 0.8 mg/dL (0.6-1.3); MAGNESIUM 2.5 mg/dL (1.8-2.4); POTASSIUM 4.8 mmol/L (3.5-5.1); TOTAL BILIRUBIN 1.1 mg/dL (<0.1-1.0); TOTAL PROTEIN 5.1 g/dL (6.4-8.2)
[2021-09-06 08:15] LABS: PHOSPHORUS* 4.7 mg/dL (2.5-4.9)
[2021-09-06 08:23] LABS: PCO2 48.1 mmHg (35.0-45.0); PO2 66.4 mmHg (75.0-100.0); pH 7.409 (7.340-7.450)
--- NOTE | 2021-09-06 15:27 | NUR ---
The doctor initially discussed in progress notes ordering a trache and peg tube placement, however pt has had a significant reduction in oxygen needs and they are delaying ordering this and continuing to attempt weaning trials. CM to continue to follow to see if pt will need ARU/SNF vs HH/DME at discharge.
--- NOTE | 2021-09-06 19:15 | NUR ---
ET TUBE CUFF DISCOVERED TO BE NON-FUNCTIONAL. RESPIRATORY AND PROVIDER NOTIFIED. DR NORTON EXCHANGED ET TUBE AT BEDSIDE WITH THIS RN AND RESPIRATORY. PT TOLERATED FAIRLY WELL. DIURESED WELL WITH LASIX. SMALL MUCUS BMX1 NO STOOL. VSS . PRONED AROUND 1600 TOLERATED WELL. WHILE SUPINE ABLE TO DECREASE SEDATION BREIFLY - PT BEGAN COUGHING AND BEGAME DESYNCRONUS WITH VENT SEDATION INCREASED PER ATTENDING. WILL DEVORAH TO MONITOR.
[2021-09-07] VITALS (22 sets, daily range): BP systolic 105–171; BP diastolic 56–98
[2021-09-07 04:10] LABS: HEMATOCRIT 45.9 % (42.0-52.0); HEMOGLOBIN 15.1 gm/dL (14.0-18.0); MCH 29.2 pg (26.0-34.0); MCHC 32.9 g/dL (28.0-37.0); MCV 88.8 fL (80.0-100.0); MPV 7.8 fl. (7.2-11.1); RBC 5.17 mil/uL (4.50-6.00); RDW-CV 13.8 % (10.5-14.5); WBC 16.9 thou/uL (4.0-11.0)
[2021-09-07 05:03] LABS: ALBUMIN 2.9 g/dL (3.4-5.0); CALCIUM 8.7 mg/dL (8.5-10.1); CREATININE 0.7 mg/dL (0.6-1.3); MAGNESIUM 2.3 mg/dL (1.8-2.4); TOTAL BILIRUBIN 1.1 mg/dL (<0.1-1.0); TOTAL PROTEIN 5.1 g/dL (6.4-8.2)
--- NOTE | 2021-09-07 06:01 | NUR ---
ASSUMED CARE AT 1900H, ON VENT AT 50% AND TOLERATED. ON SEDATIONS. NO FEVER AND DISTRESS NOTED. UNPRONED PT ARROUND 0430H. CONTINUE MONITORING AND TOWARDS GAOLS. PROPOFOL AT 20MICS, FENTANYL AT 125MICS AND VERSED AT MAX DOSE.
--- NOTE | 2021-09-07 13:50 | NUR ---
Pt continues to improve. Pt is now on 40% Fi02. Weaning trials continue to see if he can be extubated or will need trache and peg tube placed. If pt requires a trache and peg tube will need LTACH placement. Otherwise if extubated may need ARU/SNF vs home with with HH/DME. CM following for discharge needs.
--- NOTE | 2021-09-07 19:15 | NUR ---
PATIENT CONTINUES ON VENT, SEDATION TITRATED DOWN, PROPOFOL OFF. PRECEDEX STARTED, PT AWAKE BUT NO FOLLOWING COMMANDS, NO PURPOSEFUL MOVEMENTS. TOLERATING TUBE FEEDS, NO BM THIS SHIFT. UPDATED AND AT BEDSIDE. VSS, WILL CONTINUE TO MONITOR.
[2021-09-08] VITALS (25 sets, daily range): BP systolic 96–163; BP diastolic 56–95
--- NOTE | 2021-09-08 04:31 | NUR ---
ASSUMED CARE AT 1910H, ON VENT AT 50% AND STARTED TO BE RESTLESS AND DESAT. SEDATIONS TITRATED AND FIO2 UP TO 60%. CONTINUE MONITORING AND TOWARDS GOALS. VERSED AND FENTANYL AT MAX DOSE AND PRESEDEX AT .8MICS.
[2021-09-08 05:43] LABS: ABSOLUTE BASOPHILS 0.1 thou/uL (0.0-0.2); ABSOLUTE LYMPHOCYTES 0.5 thou/uL (0.8-5.3); ABSOLUTE MONOCYTES 1.1 thou/uL (0.0-1.2); ABSOLUTE NEUTROPHILS 13.5 thou/uL (1.6-8.1); BASOPHILS 0.7 %; EOSINOPHILS 0.1 %; HEMATOCRIT 46.6 % (42.0-52.0); HEMOGLOBIN 15.2 gm/dL (14.0-18.0); LYMPHOCYTES 3.1 %; MCH 29.5 pg (26.0-34.0); MCHC 32.6 g/dL (28.0-37.0); MCV 90.4 fL (80.0-100.0); MONOCYTES 7.1 %; MPV 8.9 fl. (7.2-11.1); NUCLEATED RBCS 0 /100WBC; PLATELET COUNT* 95 thou/uL (150-400); RBC 5.16 mil/uL (4.50-6.00); RDW-CV 13.9 % (10.5-14.5); WBC 15.1 thou/uL (4.0-11.0)
[2021-09-08 06:03] LABS: LIPASE 463 U/L (73-393); TRIGLYCERIDE 226 mg/dL (<150)
[2021-09-08 06:05] LABS: CALCIUM 8.6 mg/dL (8.5-10.1); CREATININE 0.6 mg/dL (0.6-1.3); POTASSIUM 4.6 mmol/L (3.5-5.1); TOTAL BILIRUBIN 1.4 mg/dL (<0.1-1.0); TOTAL PROTEIN 5.5 g/dL (6.4-8.2)
--- NOTE | 2021-09-08 09:49 | NUR ---
Recieved call from scientific laboratory supervisor at [facility]. Patient sees Dr. Sal Kinney at that clinic for his pcp needs. RN wanted to ensure the hospital was aware of the above information. SW updated.
[2021-09-08 11:31] LABS: BE 1.6 mmol/L (-2 to +3); PCO2 45.1 mmHg (35.0-45.0); PO2 74.8 mmHg (75.0-100.0); pH 7.396 (7.340-7.450)
[2021-09-08 13:26] LABS: CALCIUM 8.5 mg/dL (8.5-10.1); CREATININE 0.7 mg/dL (0.6-1.3); POTASSIUM 4.3 mmol/L (3.5-5.1)
[2021-09-08 13:34] LABS: APTT 24.5 Seconds (25.0-31.3); INR 1.2; PROTIME 11.9 Seconds (9.20-11.50)
--- NOTE | 2021-09-08 18:49 | NUR ---
PT STARTED OFF THE DAY WITH LOW TV AND WAS UNABLE TO KEEP SATS UP. HE HAD TO GO UP TO 70% ON THE VENT. CXR COMPLETED. SPOKE TO DR. CANNON AND IT DOES NOT SEEM PT WAS ADEQUATELY SEDATED, PROPOFOL WAS ADDED TEMPORARILY UNTIL HE ROUNDED. AFTER ROUNDING, DR. CANNON ADDED A STAT CHEST CT FOR CONCERNS FOR PE AND A CT ABDOMEN WAS ADDED PT WAS ALREADY GOING TO CT. COAGS WERE DRAWN AND THE D-DIMER WAS ABOVE 7. US DOPPLER WAS COMPLETED AND NEGATIVE. AFTER PT RETURNED FROM CT, HE WAS PRONED. LASIX WAS INITIALLY ORDERED, BUT THE D-DIMER CAME BACK SO HIGH, IT WAS DECIDED BY DR. CANNON NOT TO GIVE. CT RESULTS WERE COMMUNICATED TO DR. CANNON IT APPEARS THE PT DOES HAVE A PE. HE WAS STARTED ON THERAPEUTIC LOVENOX. PRN ORDER FOR 2 MG OF ATIVAN ONCE AND LEVO ORDERED WHEN PT WAS INITIALLY PRONED, HE WAS TACHYPNEIC AND TACHY. PT VS HAVE SINCE STABLIZED.
[2021-09-09] VITALS (41 sets, daily range): BP systolic 93–151; BP diastolic 60–104
[2021-09-09 03:42] LABS: HEMATOCRIT 49.4 % (42.0-52.0); HEMOGLOBIN 16.5 gm/dL (14.0-18.0); MCH 29.5 pg (26.0-34.0); MCHC 33.4 g/dL (28.0-37.0); MCV 88.3 fL (80.0-100.0); NUCLEATED RBCS 0 /100WBC; PLATELET COUNT* 89 thou/uL (150-400); RDW-CV 13.5 % (10.5-14.5); WBC 18.2 thou/uL (4.0-11.0)
[2021-09-09 04:02] LABS: PHOSPHORUS* 4.6 mg/dL (2.5-4.9)
[2021-09-09 04:05] LABS: ALBUMIN 2.9 g/dL (3.4-5.0); CALCIUM 8.3 mg/dL (8.5-10.1); CREATININE 0.6 mg/dL (0.6-1.3); MAGNESIUM 1.9 mg/dL (1.8-2.4); POTASSIUM 4.9 mmol/L (3.5-5.1); TOTAL BILIRUBIN 2.1 mg/dL (<0.1-1.0); TOTAL PROTEIN 5.4 g/dL (6.4-8.2)
[2021-09-09 06:37] LABS: ABSOLUTE LYMPHOCYTES 0.5 thou/uL (0.8-5.3); ABSOLUTE MONOCYTES 0.9 thou/uL (0.0-1.2); ABSOLUTE NEUTROPHILS 16.7 thou/uL (1.6-8.1)
[2021-09-09 06:38] LABS: PLATELET ESTIMATE DECREASED
[2021-09-09 08:51] LABS: BE 0.6 mmol/L (-2 to +3); PCO2 39.2 mmHg (35.0-45.0); pH 7.421 (7.340-7.450)
[2021-09-09 08:53] LABS: PO2 141.1 mmHg (75.0-100.0)
--- NOTE | 2021-09-09 12:14 | NUR ---
ICU Rounds: Pt remains on a ventilator - Fio2 - 65% and sedated. Pt has been on a vent since 08/24/21. Pt did complete DPOA before being placed on a Vent naming his - Michelle as DPOA. Will continue weaning trials but still may need a trache and peg tube. If able to wean off vent - may need ARU vs HH. If Trache/Peg tube placed will need referral made to LTACH. CM to continue to follow for discharge planning.
[2021-09-10] VITALS (34 sets, daily range): BP systolic 103–153; BP diastolic 64–98
[2021-09-10 06:08] LABS: ABSOLUTE LYMPHOCYTES 0.4 thou/uL (0.8-5.3); ABSOLUTE MONOCYTES 0.8 thou/uL (0.0-1.2); BASOPHILS 0.3 %; EOSINOPHILS 0.1 %; HEMATOCRIT 46.8 % (42.0-52.0); HEMOGLOBIN 15.3 gm/dL (14.0-18.0); LYMPHOCYTES 3.1 %; MCH 29.3 pg (26.0-34.0); MCHC 32.7 g/dL (28.0-37.0); MCV 89.3 fL (80.0-100.0); MONOCYTES 6.3 %; MPV 8.9 fl. (7.2-11.1); NUCLEATED RBCS 0 /100WBC; PLATELET COUNT* 95 thou/uL (150-400); POLYS 90.2 %; RBC 5.24 mil/uL (4.50-6.00); RDW-CV 14.2 % (10.5-14.5); WBC 13.3 thou/uL (4.0-11.0)
[2021-09-10 06:18] LABS: CALCIUM 8.2 mg/dL (8.5-10.1); CREATININE 0.9 mg/dL (0.6-1.3); MAGNESIUM 2.3 mg/dL (1.8-2.4); POTASSIUM 4.6 mmol/L (3.5-5.1); TOTAL BILIRUBIN 2.3 mg/dL (<0.1-1.0); TOTAL PROTEIN 5.6 g/dL (6.4-8.2)
[2021-09-10 06:23] LABS: PHOSPHORUS* 3.9 mg/dL (2.5-4.9)
[2021-09-10 09:48] LABS: BE -0.4 mmol/L (-2 to +3); PCO2 35.4 mmHg (35.0-45.0); PO2 75.9 mmHg (75.0-100.0); pH 7.434 (7.340-7.450)
[2021-09-11] VITALS (28 sets, daily range): BP systolic 122–165; BP diastolic 69–102
--- NOTE | 2021-09-11 01:49 | NUR ---
ASSUMED CARE OF PT AT 1900. PT IS SEDATED AND CALM AT THIS TIME. VSS. PERRLA. NO SIGNS OF PAIN. PT IS CURRENTLY ON THE VENTILATOR AND TOLERATING WELL. PT HAS A SANTIAGO IN PLACE. PT HAS TUBE FEEDING AT 35 ML/HR. PT IS IN SINUS RYTHM ON THE TELEMETRY. PT IS RESTING COMFORTABLY IN BED. RESPIRATIONS ARE EVEN AND NONLABORED. WILL CONTINUE TO MONITOR PT.
[2021-09-11 05:36] LABS: ABSOLUTE LYMPHOCYTES 0.4 thou/uL (0.8-5.3); ABSOLUTE MONOCYTES 0.9 thou/uL (0.0-1.2); ABSOLUTE NEUTROPHILS 14.9 thou/uL (1.6-8.1); BASOPHILS 0.2 %; EOSINOPHILS 0.1 %; HEMATOCRIT 44.5 % (42.0-52.0); HEMOGLOBIN 14.6 gm/dL (14.0-18.0); LYMPHOCYTES 2.5 %; MCH 29.2 pg (26.0-34.0); MCHC 32.8 g/dL (28.0-37.0); MCV 88.9 fL (80.0-100.0); MONOCYTES 5.6 %; MPV 9.2 fl. (7.2-11.1); NUCLEATED RBCS 0 /100WBC; PLATELET COUNT* 86 thou/uL (150-400); POLYS 91.6 %; RDW-CV 13.8 % (10.5-14.5); WBC 16.3 thou/uL (4.0-11.0)
[2021-09-11 05:51] LABS: HEMATOCRIT 44.5 % (42.0-52.0); HEMOGLOBIN 14.6 gm/dL (14.0-18.0); MCH 29.2 pg (26.0-34.0); MCHC 32.8 g/dL (28.0-37.0); MCV 88.8 fL (80.0-100.0); MPV 8.9 fl. (7.2-11.1); RBC 5.01 mil/uL (4.50-6.00); RDW-CV 13.7 % (10.5-14.5); WBC 16.3 thou/uL (4.0-11.0)
[2021-09-11 05:52] LABS: ALBUMIN 2.6 g/dL (3.4-5.0); CALCIUM 7.9 mg/dL (8.5-10.1); CREATININE 0.6 mg/dL (0.6-1.3); MAGNESIUM 2.1 mg/dL (1.8-2.4); POTASSIUM 4.4 mmol/L (3.5-5.1); TOTAL BILIRUBIN 1.5 mg/dL (<0.1-1.0); TOTAL PROTEIN 5.1 g/dL (6.4-8.2)
[2021-09-11 06:04] LABS: PHOSPHORUS* 3.7 mg/dL (2.5-4.9)
[2021-09-11 06:22] LABS: URINE BILIRUBIN NEGATIVE (Negative); URINE BLOOD 2+ (Negative); URINE CLARITY CLEAR; URINE COLOR YELLOW; URINE GLUCOSE-RANDOM NEGATIVE (Negative); URINE KETONES NEGATIVE (Negative); URINE LEUKOCYTES-REFLEX NEGATIVE (Negative); URINE NITRITE-REFLEX NEGATIVE (Negative); URINE PROTEIN NEGATIVE (Negative); URINE SPECIFIC GRAVITY >= 1.030 (1.005-1.030); URINE UROBILINOGEN 0.2 E.U./dl (0.2-1.0)
[2021-09-11 06:41] LABS: BACTERIA-REFLEX None Seen /HPF (None Seen); CASTS None Seen /LPF (None Seen); CRYSTALS None Seen /LPF (None Seen); SQUAMOUS 0-3 Few /LPF (0-3); URINE RBC 3-10 Few /HPF (0-2); URINE WBC-REFLEX 0-5 Rare /HPF (0-5)
--- NOTE | 2021-09-11 09:57 | NUR ---
ASSESS PT WITH DR. BOOTH, WILL INSTRUCT RT TO OBTAIN SPUTUN CULTURE VIA ET TUBE.
--- NOTE | 2021-09-11 20:00 | NUR ---
BEDSIDE REPORT GIVEN TO SHAHEED COLÓN.
[2021-09-12] VITALS (33 sets, daily range): BP systolic 117–167; BP diastolic 73–102
--- NOTE | 2021-09-12 01:59 | NUR ---
ASSUMED CARE OF PT AT 1900. PT IS SEDATED ON THE VENTILATOR. PERRLA. NO SIGNS OF PAIN. PT IS IN RESTRAINTS. NO OG PLACED, WAITING ON KUB FOR PLACEMENT. PT IS IN SINUS RYTHM ON THE TELEMETRY. PT IS RESTING COMFORTABLY IN BED. WILL CONTINUE TO MONITOR.
[2021-09-12 06:47] LABS: ABSOLUTE LYMPHOCYTES 0.3 thou/uL (0.8-5.3); ABSOLUTE MONOCYTES 0.7 thou/uL (0.0-1.2); ABSOLUTE NEUTROPHILS 12.7 thou/uL (1.6-8.1); EOSINOPHILS 0.1 %; HEMATOCRIT 42.5 % (42.0-52.0); HEMOGLOBIN 14.3 gm/dL (14.0-18.0); LYMPHOCYTES 1.9 %; MCH 29.4 pg (26.0-34.0); MCHC 33.7 g/dL (28.0-37.0); MCV 87.3 fL (80.0-100.0); MONOCYTES 5.2 %; MPV 9.3 fl. (7.2-11.1); NUCLEATED RBCS 0 /100WBC; PLATELET COUNT* 79 thou/uL (150-400); POLYS 92.8 %; RBC 4.86 mil/uL (4.50-6.00); RDW-CV 13.3 % (10.5-14.5); WBC 13.7 thou/uL (4.0-11.0)
[2021-09-12 06:55] LABS: ALBUMIN 2.3 g/dL (3.4-5.0); CALCIUM 7.6 mg/dL (8.5-10.1); CREATININE 0.5 mg/dL (0.6-1.3); POTASSIUM 4.4 mmol/L (3.5-5.1); TOTAL BILIRUBIN 1.3 mg/dL (<0.1-1.0); TOTAL PROTEIN 4.9 g/dL (6.4-8.2)
[2021-09-12 09:05] LABS: PHOSPHORUS* 3.8 mg/dL (2.5-4.9)
[2021-09-12 09:44] LABS: BE 1.1 mmol/L (-2 to +3); PCO2 39.2 mmHg (35.0-45.0); PO2 79.5 mmHg (75.0-100.0); pH 7.429 (7.340-7.450)
--- NOTE | 2021-09-12 16:26 | NUR ---
ICU Rounds: Plan is for pt to receive Trache and Peg tube placement alek on 09/13/20. Called /LIANG Martinez at: [phone] and left a message asking for a return call. Pt will need LTACH placement. Referred patient to all three area LTACH's: [facility] Attempting to find out who will accept, who has a bed, and who takes patient's insurance after pt is medically stable. CM to continue to follow for discharge planning.
--- NOTE | 2021-09-12 21:17 | NUR ---
PT CONTINUES ON VENT SUPPORT, SEDATION VACATION ATTEMPTED - PT DID NOT TOLERATE D/T TACHYPNIA AND COUGHING. UPDATED - CONSENT OBTAINED FOR TRACH AND PEG - PLAN FOR TOMORROW. TF CONTINUES - TOLERATING. CENTRAL LINE DRESSING CHANGED X2 AND PREASSURE DRESSING APPLIED - CONTINUES TO OOZ, PROVIDER NOTIFIED. VSS, PRN PUSHES USED WHEN NEEDED FOR VENT DESYNCRONY. PT HAS SUSTAINED AWAKENING BUT NO EYE CONTACT OR PURPOSEFUL MOVEMENTS, UNABLE TO FOLLOW COMMANDS. NO FEVERS. AT END OF SHIFT VENT ALAWRM HEARD - WHEN THIS RN ENTERED THE ROOM A SIGNIFICANT CUFF LEAK COULD BE HEARD COMING FROM THE ET TUBE. THE PATIENT WAS WITNESSED COUGHING AND TOUNGING AT THE TUBE. RT AND DR. CANNON CONTACTED. ET TUBE WAS NOT IN PLACE - VENT ALARMING LOSS OF TIDAL VOLUMES AND PEEP. ET TUBE REMOVED AND BEGAN BAGGING PT UNTIL DR. NORTON ARRIVED AT BEDSIDE TO REINTUBATE PT. PT SUCCESSFULY REINTUBATED AND NEW 8.0 ET TUBE SECURED AT 27CM AT THE TEETH.
[2021-09-13] VITALS (28 sets, daily range): BP systolic 133–152; BP diastolic 73–90
[2021-09-13 04:34] LABS: HEMATOCRIT 42.7 % (42.0-52.0); HEMOGLOBIN 14.3 gm/dL (14.0-18.0); MCH 29.5 pg (26.0-34.0); MCHC 33.5 g/dL (28.0-37.0); MCV 88.2 fL (80.0-100.0); MPV 9.3 fl. (7.2-11.1); NUCLEATED RBCS 0 /100WBC; PLATELET COUNT* 89 thou/uL (150-400); RBC 4.85 mil/uL (4.50-6.00); RDW-CV 13.8 % (10.5-14.5)
[2021-09-13 05:07] LABS: ALBUMIN 2.2 g/dL (3.4-5.0); CALCIUM 7.8 mg/dL (8.5-10.1); CREATININE 0.5 mg/dL (0.6-1.3); MAGNESIUM 2.1 mg/dL (1.8-2.4); POTASSIUM 4.3 mmol/L (3.5-5.1); TOTAL BILIRUBIN 1.3 mg/dL (<0.1-1.0)
[2021-09-13 07:13] LABS: ABSOLUTE LYMPHOCYTES 0.2 thou/uL (0.8-5.3); ABSOLUTE MONOCYTES 0.4 thou/uL (0.0-1.2); ABSOLUTE NEUTROPHILS 11.4 thou/uL (1.6-8.1)
[2021-09-13 07:14] LABS: PLATELET ESTIMATE DECREASED
--- NOTE | 2021-09-13 14:52 | NUR ---
Received call from Xiomara today. Case management continues to attempt to assist with obtaining necessary documentation from Medical Records to send to company that provides short term disability through patient's employer. Company actually called CM department attempting to obtain information to assist but we were not able to give out information due to HIPPA. has found DPOA paperwork for patient and presented to Medical Records who provided a form to complete. Assisted with completing form and what to request as far as records to be faxed through Medical Records to file short term disability claim. is also requesting her 18 year old daughter be allowed to visit but she would like to be present to offer comfort and support to her as this is a difficult time for her daughter. Discussed policy is one visitor per day but will discuss with staff to see if they would make an exception. Discussed in team meeting and Last Turner was to follow up on this. Anticipate pt will need LTACH vs ARU/SNF upon discharge. CM to continue to follow for discharge planning.
--- NOTE | 2021-09-13 16:00 | NUR ---
Pt had trache and PEG tube placement today. Referred patient to three area LTACH's. Met with Michelle/DPOA signed on 08/24/21. She is in agreement with LTACH placement. Provided a list of the 3 area LTACH's and discussed it will depend on who has a bed available. All three feel they are in network with pt's [employer] plan. 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 Pt had just taken a job at the [employer] in [place] and they were in the process of moving when pt contracted Covid. agreeable to all three LTACH's contacting her so she can tour. Made aware of [employer]'s policy rule - 21 days on the vent, 7 days on the Trache, 3 midnights in the ICU, and out of Covid isolation. She expresses understanding. Also discussed it may be a waiting game with bed availability and obtaining insurance approval. Spoke witht he following facilities: Anitha ([facility]) [phone]. Anitha reports pt already meets some criteria with placement of Trache and Peg Tube, ICU stay, and having a DPOA. They do accept patient's on drips, antibiotics, and would like them to have a Peep of 8-10 and showing improvement. She is to contact . Tahmina ([facility]) - [phone] - She is to contact . They will take some patient's on drips but it can't be Fentanyl, accepts on antibiotics, and would like peep of 8-10 as well and above criteria with 21 to 7 rule. Tahmina does report they have a lengthy waiting list at this time. Windy ([facility]) [phone] - is to contact . She confirms 21 to 7 rule as well for [employer]. They do not accept patient's on drips. Same criteria as above facilities. CM to continue to follow for discharge planning.
--- NOTE | 2021-09-13 20:07 | NUR ---
PT WENT TO OR FOR PLANED PROCEDRES. TRACH AND PEG COMPLETED SUCESSFULY. PT RECOVERED BY PACU TEAM IN ICU D/T LIMMITED STAFF & RESOURCES. fIO2 TITRTAED DOWN TO 50%, NO BM THIS SHIFT, TUBE FEEDS RESTARTED. SEDATION TITRTAED DOWN PT TOLERATED. PT WOULD ALARM VENT FOR LOSS OF PEEP, AND LOW VT. RT NOTIFIED AND AT BEDSIDE. PT STILL UNABLE TO FOLLOW COMMANDS BUT HAS SUSTAINED AWAKENING. VSS, WILL CONTINUE TO MONITOR. UPDATED AT BEDSIDE ABOUT PT CONDITION.
[2021-09-14] VITALS (11 sets, daily range): BP systolic 131–154; BP diastolic 72–91
[2021-09-14 04:46] LABS: HEMATOCRIT 40.4 % (42.0-52.0); HEMOGLOBIN 13.5 gm/dL (14.0-18.0); MCH 29.5 pg (26.0-34.0); MCHC 33.3 g/dL (28.0-37.0); MCV 88.5 fL (80.0-100.0); MPV 9.1 fl. (7.2-11.1); RBC 4.57 mil/uL (4.50-6.00); RDW-CV 13.6 % (10.5-14.5); WBC 11.6 thou/uL (4.0-11.0)
[2021-09-14 05:07] LABS: CREATININE 0.6 mg/dL (0.6-1.3); MAGNESIUM 2.3 mg/dL (1.8-2.4); POTASSIUM 3.9 mmol/L (3.5-5.1)
[2021-09-14 14:42] LABS: BE 2.5 mmol/L (-2 to +3)
--- NOTE | 2021-09-14 16:35 | NUR ---
Met with - Michelle/LIANG and she provided contact number of [phone]. She agreed to have this landscape architect and planner provide information to admissions of 3 local LTACH's. She reports patient's sister would also like to help in decision process of which facility. Updated all 3 LTACH's with contact information and faxed updated clinicals.
[2021-09-15 04:02] LABS: ABSOLUTE EOSINOPHILS 0.1 thou/uL (0.0-0.7); ABSOLUTE LYMPHOCYTES 0.5 thou/uL (0.8-5.3); ABSOLUTE MONOCYTES 0.5 thou/uL (0.0-1.2); ABSOLUTE NEUTROPHILS 8.8 thou/uL (1.6-8.1); BASOPHILS 0.2 %; EOSINOPHILS 1.1 %; HEMOGLOBIN 12.8 gm/dL (14.0-18.0); LYMPHOCYTES 5.5 %; MCH 29.9 pg (26.0-34.0); MCHC 33.7 g/dL (28.0-37.0); MCV 88.7 fL (80.0-100.0); MONOCYTES 4.7 %; MPV 8.1 fl. (7.2-11.1); NUCLEATED RBCS 0 /100WBC; PLATELET COUNT* 111 thou/uL (150-400); POLYS 88.5 %; RBC 4.28 mil/uL (4.50-6.00); RDW-CV 13.9 % (10.5-14.5)
[2021-09-15 04:18] LABS: ALBUMIN 2.5 g/dL (3.4-5.0); CALCIUM 7.8 mg/dL (8.5-10.1); CREATININE 0.8 mg/dL (0.6-1.3); MAGNESIUM 2.1 mg/dL (1.8-2.4); POTASSIUM 3.9 mmol/L (3.5-5.1); TOTAL BILIRUBIN 0.9 mg/dL (<0.1-1.0); TOTAL PROTEIN 5.2 g/dL (6.4-8.2)
--- NOTE | 2021-09-15 16:29 | NUR ---
ICU Rounds: Trache and Peg Tube Placed on 09/13/21 but remains heavily sedated. Isolation: Out of Covid isolation Intubated: 08/24/21 Antibiotics: will receive Daptomycin until 09/19/21 but still running fevers. Continue Vent Weaning 50%Fi02 Peep of 10 DPOA - completed - Michelle was named as DPOA - paperwork on chart. [employer] Copper Tapper - Malika at [phone] - in agreement with referral to LTACH. [facility]errals out to [facility] in [place], [place], [facility], and [facility] - [place], [place]. All three are indicating [employer] is in network. Dr. Murillo asking about sedation/drip requirements. [facility] does not accept drips. [facility] and [facility] both accept pt's on drips. Called /DPBENJIE - Michelle at: [phone] and left a message asking about choices - as pt's sister - who is DON at an LTAC in [place] wanted to assist with selection, however they are aware he may be sent to whom has the bed available first. Anticipate discharge in and around 09/20/21 to meet 7 day requirement for insurance. [facility] would both like to submit for auth tommorow. CM to continue to follow for discharge planning.
[2021-09-15 19:04] VITALS: BP 107/66
[2021-09-15 20:04] VITALS: BP 111/65
[2021-09-15 21:04] VITALS: BP 118/64
[2021-09-15 22:04] VITALS: BP 117/65
[2021-09-15 23:04] VITALS: BP 103/64
[2021-09-16] VITALS (32 sets, daily range): BP systolic 102–139; BP diastolic 50–82
[2021-09-16 05:42] LABS: ABSOLUTE EOSINOPHILS 0.1 thou/uL (0.0-0.7); ABSOLUTE LYMPHOCYTES 0.3 thou/uL (0.8-5.3); ABSOLUTE MONOCYTES 0.4 thou/uL (0.0-1.2); ABSOLUTE NEUTROPHILS 7.3 thou/uL (1.6-8.1); BASOPHILS 0.1 %; EOSINOPHILS 1.1 %; HEMATOCRIT 35.2 % (42.0-52.0); HEMOGLOBIN 11.7 gm/dL (14.0-18.0); LYMPHOCYTES 4.3 %; MCHC 33.2 g/dL (28.0-37.0); MCV 90.4 fL (80.0-100.0); MONOCYTES 5.1 %; MPV 8.3 fl. (7.2-11.1); NUCLEATED RBCS 0 /100WBC; PLATELET COUNT* 110 thou/uL (150-400); POLYS 89.4 %; RBC 3.89 mil/uL (4.50-6.00); RDW-CV 14.1 % (10.5-14.5); WBC 8.1 thou/uL (4.0-11.0)
[2021-09-16 06:48] LABS: CALCIUM 8.1 mg/dL (8.5-10.1); CREATININE 0.6 mg/dL (0.6-1.3); MAGNESIUM 2.1 mg/dL (1.8-2.4); POTASSIUM 4.4 mmol/L (3.5-5.1); TOTAL BILIRUBIN 0.8 mg/dL (<0.1-1.0); TOTAL PROTEIN 5.1 g/dL (6.4-8.2)
[2021-09-16 07:39] LABS: BE 2.8 mmol/L (-2 to +3); PO2 99.8 mmHg (75.0-100.0); pH 7.352 (7.340-7.450)
[2021-09-16 07:41] LABS: PCO2 54.4 mmHg (35.0-45.0)
[2021-09-16 08:44] LABS: PHOSPHORUS* 3.1 mg/dL (2.5-4.9)
--- NOTE | 2021-09-16 16:58 | NUR ---
Pt went to the OR today (Hematoma under Trache) and coded. was to decide on which LTACH and get back to this capacity planner. Will follow up with tommorow and to check on patient's condition. CM to continue to follow for discharge planning.
[2021-09-17] VITALS (11 sets, daily range): BP systolic 105–143; BP diastolic 60–78
[2021-09-17 05:42] LABS: HEMATOCRIT 30.3 % (42.0-52.0); HEMOGLOBIN 10.3 gm/dL (14.0-18.0); MCH 30.3 pg (26.0-34.0); MCHC 33.8 g/dL (28.0-37.0); MCV 89.8 fL (80.0-100.0); MPV 8.3 fl. (7.2-11.1); NUCLEATED RBCS 0 /100WBC; PLATELET COUNT* 117 thou/uL (150-400); RBC 3.38 mil/uL (4.50-6.00); RDW-CV 13.7 % (10.5-14.5); WBC 7.4 thou/uL (4.0-11.0)
[2021-09-17 06:22] LABS: ALBUMIN 1.8 g/dL (3.4-5.0); CALCIUM 7.8 mg/dL (8.5-10.1); CREATININE 0.5 mg/dL (0.6-1.3); MAGNESIUM 1.7 mg/dL (1.8-2.4); POTASSIUM 4.6 mmol/L (3.5-5.1); TOTAL BILIRUBIN 0.7 mg/dL (<0.1-1.0); TOTAL PROTEIN 5.1 g/dL (6.4-8.2)
[2021-09-17 07:07] LABS: ABSOLUTE LYMPHOCYTES 0.7 thou/uL (0.8-5.3); ABSOLUTE MONOCYTES 0.4 thou/uL (0.0-1.2); ABSOLUTE NEUTROPHILS 6.3 thou/uL (1.6-8.1); METAMYELOCYTES 1 %
[2021-09-17 07:08] LABS: PLATELET ESTIMATE DECREASED
--- NOTE | 2021-09-17 12:37 | NUR ---
ICU rounds: Ventilation: Remains on a Trache Isolation: Out of covid Isolation DPOA - Michelle - copy on chart Living Situation: Lives with and kids Intubated: 08/24/21 Trache Placement: 09/16/21 Peg Tube Placement: 09/16/21 Sx: Evacuation of Hematoma on 09/19/21 D/C Plan: Referred to 3 [facility]'s: [facility], [facility], and [facility]. was planning to tour on Sunday and be able to provide choice. All 3 are stating they are in network with [facility]. [facility] reports having a waiting list. [facility] does not take patient's on drips - so will have to see how sedated pt is next week. Insurance requirements - Trache placement for 7 days - will need Fi02 of 60% or less. Peep of 8-10 and showing improvement. Hoping to secure choice by 09/19/21 and to submit for auth. Called - Michelle and left message asking about choice for LTACH as pt's sister was assisting with determing their 1,2,and 3rd choice - as we have had the discussion ultimately it will be where the bed is available. CM to continue to follow for discharge planning.
--- NOTE | 2021-09-17 19:22 | NUR ---
PT CONITUES ON VENT. SEATION VACATION ATTEMPTED - PT GOT TACHY AND TACHYPNIC. BEGAN TO DESAT. SEDATION INCREASED. TITRTAED DOWN SLOWLY TOLERATED. TF RESTARTED AT TRICKLE. NO BM THIS SHIFT. PT STILL UNABLE TO FOLLOW COMMANDS. PT RHYTHM BECAME IRREGULAR EKG DONE - ELYSIA NOTIFIED NO NEW ORDERS. AT BEDSIDE AND UPDATED. WILL CONTINUE TO MONITOR.
[2021-09-18] VITALS (31 sets, daily range): BP systolic 95–159; BP diastolic 65–87
[2021-09-18 05:52] LABS: HEMATOCRIT 29.7 % (42.0-52.0); MCH 30.3 pg (26.0-34.0); MCHC 33.8 g/dL (28.0-37.0); MCV 89.8 fL (80.0-100.0); MPV 8.3 fl. (7.2-11.1); RBC 3.31 mil/uL (4.50-6.00); RDW-CV 14.5 % (10.5-14.5); WBC 6.6 thou/uL (4.0-11.0)
[2021-09-18 06:15] LABS: CALCIUM 7.9 mg/dL (8.5-10.1); CREATININE 0.3 mg/dL (0.6-1.3); POTASSIUM 3.6 mmol/L (3.5-5.1)
--- NOTE | 2021-09-18 10:07 | EKG ---
[place] [address] ELECTROCARDIOGRAM REPORT Name: DILIP KELLERBEN Room: [address] ADM IN M.R.#: [id number] Admission: 08/22/21 Attend Phys: Dick Carmichael, Discharge: Date of : 74 Date of Service: 09/17/21 1716 Report #: [id number] THIS REPORT FOR: //name// [facility] Test Date: 2021-09-17 Test Time: 17:16:10 Pat Name: DILIP KELLER Department: Room: [address] Gender: M Surgical Territory Manager: 1883 : 1970 Requested By: Tong Munoz Order Number: [id number] Reading MD: Jose Jenkins Measurements Intervals [place] Rate: 114 P: 52 RI: 152 QRS: 3 QRSD: 84 T: -13 QT: 291 QTc: 401 Interpretive Statements Sinus tachycardia with frequent pac's Abnormal R-wave progression, late transition Borderline T abnormalities, inferior leads Baseline wander in lead(s) V2,V3 Compared to ECG 08/21/2021 23:46:02 pac's now noted Electronically Signed On 09-18-2021 10:07:32 SUGARCANE RESEARCH TECHNICIAN by Jose Jenkins [email or web address] <ELECTRONICALLY SIGNED> By: Jose Jenkins MD, [facility] 09/18/21 1007 1716 1716 Jose Jenkins MD, [facility] /EPI
[2021-09-19] VITALS (30 sets, daily range): BP systolic 91–157; BP diastolic 54–87
[2021-09-19 13:52] LABS: ABSOLUTE LYMPHOCYTES 0.2 thou/uL (0.8-5.3); ABSOLUTE MONOCYTES 0.5 thou/uL (0.0-1.2); BASOPHILS 0.2 %; EOSINOPHILS 0.1 %; HEMATOCRIT 34.6 % (42.0-52.0); HEMOGLOBIN 11.7 gm/dL (14.0-18.0); LYMPHOCYTES 2.4 %; MCH 29.8 pg (26.0-34.0); MCHC 33.7 g/dL (28.0-37.0); MCV 88.5 fL (80.0-100.0); MONOCYTES 5.3 %; NUCLEATED RBCS 0 /100WBC; RBC 3.92 mil/uL (4.50-6.00); RDW-CV 14.2 % (10.5-14.5); WBC 8.7 thou/uL (4.0-11.0)
[2021-09-19 13:56] LABS: PLATELET COUNT* 197 thou/uL (150-400)
[2021-09-19 14:04] LABS: APTT 24.9 Seconds (25.0-31.3); INR 1.1; PROTIME 11.4 Seconds (9.20-11.50)
[2021-09-19 14:05] LABS: MAGNESIUM 1.7 mg/dL (1.8-2.4)
[2021-09-19 14:18] LABS: ALBUMIN 1.9 g/dL (3.4-5.0); CALCIUM 7.6 mg/dL (8.5-10.1); CREATININE 0.4 mg/dL (0.6-1.3); POTASSIUM 4.1 mmol/L (3.5-5.1); TOTAL BILIRUBIN 0.8 mg/dL (<0.1-1.0); TOTAL PROTEIN 5.5 g/dL (6.4-8.2)
--- NOTE | 2021-09-19 14:28 | NUR ---
ICU Rounds: Remains Intubated and Sedated Isolation: Out of Covid Isolation Intubated: 08/24/21 Trache placement: 09/13/21 Peg Tube Placement: 09/13/21 Sx: Evacuation of Hematoma: 09/16/21 DPOA: Paperwork on chart- Tl Martinez Living Situation: Lives with and children Oxygen Needs: 40%Fio2 10 of Peep [employer] Case Jonelkulwinder Miguelina Daly at: [phone] has chosen [facility]. Spoke with Anitha ([phone]) in admissions and she feels they will have beds open later this week and will submit for insurance authorization today. - Michelle in agreement. CM to continue to follow for discharge planning.
[2021-09-19 14:31] LABS: BE 8.4 mmol/L (-2 to +3); PCO2 49.4 mmHg (35.0-45.0); PO2 99.9 mmHg (75.0-100.0); pH 7.451 (7.340-7.450)
[2021-09-20] VITALS (48 sets, daily range): BP systolic 70–152; BP diastolic 28–74
--- NOTE | 2021-09-20 07:57 | NUR ---
TRACH CARE DONE THIS AM AND FOUND PURULENT DRAINAGE LEAKING AROUND TRACH SITE. CLEANSED WITH WOUND CLEANSER AND NEW DRESSING APPLIED. GENERAL SURGERY TEAM CONTACTED REGARDING FINDINGS.
[2021-09-20 08:54] LABS: ALBUMIN 1.8 g/dL (3.4-5.0); CALCIUM 7.7 mg/dL (8.5-10.1); CREATININE 0.6 mg/dL (0.6-1.3); PHOSPHORUS* 2.8 mg/dL (2.5-4.9); POTASSIUM 3.4 mmol/L (3.5-5.1); TOTAL BILIRUBIN 0.8 mg/dL (<0.1-1.0)
[2021-09-20 09:05] LABS: ABSOLUTE LYMPHOCYTES 0.7 thou/uL (0.8-5.3); ABSOLUTE MONOCYTES 0.4 thou/uL (0.0-1.2); ABSOLUTE NEUTROPHILS 5.2 thou/uL (1.6-8.1); BASOPHILS 0.2 %; EOSINOPHILS 0.8 %; HEMATOCRIT 38.3 % (42.0-52.0); HEMOGLOBIN 12.2 gm/dL (14.0-18.0); LYMPHOCYTES 11.3 %; MCH 28.8 pg (26.0-34.0); MCV 89.9 fL (80.0-100.0); MONOCYTES 6.7 %; MPV 8.8 fl. (7.2-11.1); NUCLEATED RBCS 0 /100WBC; PLATELET COUNT* 126 thou/uL (150-400); RBC 4.26 mil/uL (4.50-6.00); RDW-CV 14.5 % (10.5-14.5); WBC 6.5 thou/uL (4.0-11.0)
--- NOTE | 2021-09-20 14:44 | NUR ---
ICU Rounds: Remains on Trache and sedated. Isolation: Out of Covid Isolation Intubated: 08/24/21 Trache: 09/13/21 Peg Tube: 09/13/21 DPOA - Michelle Living Situation: Lives with and children Oxygen Needs: 40%Fio2 8 of peep D/C Plan: [facility] [place], [place] Anil [employer]ms Consultant Miguelina Daly at: [phone] Faxed updates to [facility]. Pt has now developed a DVT and an infection at Trache site. Spoke with Anil [employer] Consultant Miguelina Daly. Discussed referral to [facility] in [place], [place] and current medical condition. She is to check back in 5 days for an update. CM to continue to follow for discharge planning.
--- NOTE | 2021-09-20 19:59 | NUR ---
NO CHANGES FOM 0800 ASSESSMENT. SURGERY CONTACTED REGARDING PURULENT DRAINAGE FROM TRACH SITE - CULTURED AND DRAINED AT BEDSIDE BY SURGERY. CARDIOLOFGY CONSULTED D/T IRREGULAR RHYTHM & BIGEMINY. OFFICE CONTACTED. SEDATOIN VACATION UNSUCCESSFUL D/T TACHYPNEA AND DEOXYGINATION. SEDATION INCREASED PER DR. CANNON. UA DUPLEX DONE - NO DVT. BM THIS SHIFT, VOID X1.
[2021-09-21] VITALS (22 sets, daily range): BP systolic 92–136; BP diastolic 60–88
[2021-09-21 04:24] LABS: HEMATOCRIT 28.6 % (42.0-52.0); MCH 29.7 pg (26.0-34.0); MCHC 33.3 g/dL (28.0-37.0); MCV 89.3 fL (80.0-100.0); MPV 7.4 fl. (7.2-11.1); NUCLEATED RBCS 0 /100WBC; PLATELET COUNT* 185 thou/uL (150-400); RDW-CV 14.3 % (10.5-14.5); WBC 5.5 thou/uL (4.0-11.0)
[2021-09-21 04:55] LABS: ALBUMIN 1.8 g/dL (3.4-5.0); CALCIUM 7.7 mg/dL (8.5-10.1); CREATININE 0.4 mg/dL (0.6-1.3); MAGNESIUM 1.9 mg/dL (1.8-2.4); POTASSIUM 3.7 mmol/L (3.5-5.1); TOTAL BILIRUBIN 0.6 mg/dL (<0.1-1.0); TOTAL PROTEIN 4.9 g/dL (6.4-8.2)
[2021-09-21 05:13] LABS: PHOSPHORUS* 3.1 mg/dL (2.5-4.9)
[2021-09-21 05:35] LABS: HEMOGLOBIN 9.5 gm/dL (14.0-18.0)
[2021-09-21 07:27] LABS: ABSOLUTE EOSINOPHILS 0.1 thou/uL (0.0-0.7); ABSOLUTE LYMPHOCYTES 0.6 thou/uL (0.8-5.3); ABSOLUTE MONOCYTES 0.3 thou/uL (0.0-1.2); ABSOLUTE NEUTROPHILS 4.5 thou/uL (1.6-8.1); METAMYELOCYTES 3 %; MYELOCYTES 2 %; PLATELET ESTIMATE ADEQUATE
--- NOTE | 2021-09-21 14:35 | NUR ---
ICU Rounds: We were notified today by [facility] that [facility] had received [facility]. Pt is on 4 drips for sedation: Fentanyl 150, Propofol 40, Precedex 5, and Vercet 13. Was told pt would need to be transitioned off Fentanyl drip but other medications were ok. During team meeting met with physician and she felt pt needed one more day for more stable heart rate. Discussed this with Anitha of [facility] - she is reporting insurance chai would be good for 72 hours and they would be having discharges and Sunday and would anticipate they would have a bed when patient was medically stable. CM supervisor tree fruit and nut farming thought since we transitioned pt to a Fentanyl Patch possibly pt could discharge today. Checked with Anitha at [facility] and confirmed they had already filled the bed. Spoke with Nurse who reports pt has had some instances of tachycardia this AM but has improved this afternoon. Informed of insurance chai and she is in agreement. Discussed we are hoping for discharge tommorow pending bed availability and if physician feels pt is medically stable enough to transfer by non emergent ambulance. CM to continue to follow for discharge planning.
[2021-09-21 18:07] LABS: ABSOLUTE LYMPHOCYTES 0.5 thou/uL (0.8-5.3); ABSOLUTE MONOCYTES 0.2 thou/uL (0.0-1.2); EOSINOPHILS 0.2 %; HEMATOCRIT 29.8 % (42.0-52.0); LYMPHOCYTES 9.5 %; MCH 29.8 pg (26.0-34.0); MCHC 33.6 g/dL (28.0-37.0); MCV 88.5 fL (80.0-100.0); MONOCYTES 3.3 %; MPV 7.4 fl. (7.2-11.1); NUCLEATED RBCS 0 /100WBC; PLATELET COUNT* 198 thou/uL (150-400); RBC 3.36 mil/uL (4.50-6.00); RDW-CV 14.6 % (10.5-14.5); WBC 5.7 thou/uL (4.0-11.0)
[2021-09-21 18:15] LABS: CALCIUM 7.8 mg/dL (8.5-10.1); CREATININE 0.5 mg/dL (0.6-1.3); MAGNESIUM 1.8 mg/dL (1.8-2.4); POTASSIUM 4.3 mmol/L (3.5-5.1)
[2021-09-21 20:52] LABS: URINE BILIRUBIN NEGATIVE (Negative); URINE BLOOD NEGATIVE (Negative); URINE CLARITY CLEAR; URINE COLOR YELLOW; URINE GLUCOSE-RANDOM NEGATIVE (Negative); URINE KETONES NEGATIVE (Negative); URINE LEUKOCYTES-REFLEX NEGATIVE (Negative); URINE NITRITE-REFLEX NEGATIVE (Negative); URINE PROTEIN NEGATIVE (Negative)
[2021-09-22] VITALS (12 sets, daily range): BP systolic 106–149; BP diastolic 61–88
[2021-09-22 05:41] LABS: ABSOLUTE EOSINOPHILS 0.1 thou/uL (0.0-0.7); ABSOLUTE LYMPHOCYTES 0.8 thou/uL (0.8-5.3); ABSOLUTE MONOCYTES 0.2 thou/uL (0.0-1.2); ABSOLUTE NEUTROPHILS 3.9 thou/uL (1.6-8.1); BASOPHILS 0.3 %; EOSINOPHILS 1.1 %; HEMATOCRIT 29.1 % (42.0-52.0); HEMOGLOBIN 9.7 gm/dL (14.0-18.0); LYMPHOCYTES 15.3 %; MCH 29.6 pg (26.0-34.0); MCHC 33.2 g/dL (28.0-37.0); MCV 89.1 fL (80.0-100.0); MONOCYTES 4.7 %; MPV 7.4 fl. (7.2-11.1); NUCLEATED RBCS 0 /100WBC; PLATELET COUNT* 201 thou/uL (150-400); POLYS 78.6 %; RBC 3.27 mil/uL (4.50-6.00); RDW-CV 14.7 % (10.5-14.5); WBC 4.9 thou/uL (4.0-11.0)
[2021-09-22 05:56] LABS: PHOSPHORUS* 2.2 mg/dL (2.5-4.9)
[2021-09-22 06:01] LABS: ALBUMIN 2.1 g/dL (3.4-5.0); CALCIUM 7.9 mg/dL (8.5-10.1); CREATININE 0.5 mg/dL (0.6-1.3); MAGNESIUM 1.7 mg/dL (1.8-2.4); TOTAL BILIRUBIN 0.7 mg/dL (<0.1-1.0); TOTAL PROTEIN 5.3 g/dL (6.4-8.2)
[2021-09-22 06:07] LABS: POTASSIUM 2.9 mmol/L (3.5-5.1)
--- NOTE | 2021-09-22 10:07 | NUR ---
ICU Rounds: Patient remains on vent (FiO2 40% and 8 peep). Continued gtts, fent patch and pain meds. Patient has auth for LTACH that expires 72 hours from approval. Patient will need to transfer Saturday 09/23 otherwise, auth will need to be restarted. At this time, the physician does not feel that patient is stable for transfer. BP is running 80s/50s. Per physician, adjustments to meds will occur and patient will need to be monitored 1 more day before transfer. Spoke to Anitha from [facility] who stated they do not have beds today but will have 1 bed tomorrow (09/23). Tentative dc plan is LTACH tomorrow. LUX will follow up with [facility] first thing in the am for an update. Current gtts accepted at facility. Anitha/[facility] / [facility] to continue to follow.
[2021-09-22 17:11] LABS: CALCIUM 7.8 mg/dL (8.5-10.1); CREATININE 0.4 mg/dL (0.6-1.3); POTASSIUM 4.6 mmol/L (3.5-5.1)
[2021-09-23] VITALS (12 sets, daily range): BP systolic 102–149; BP diastolic 58–89
[2021-09-23 05:35] LABS: ABSOLUTE BASOPHILS 0.1 thou/uL (0.0-0.2); ABSOLUTE EOSINOPHILS 0.1 thou/uL (0.0-0.7); ABSOLUTE LYMPHOCYTES 1.1 thou/uL (0.8-5.3); ABSOLUTE MONOCYTES 0.2 thou/uL (0.0-1.2); ABSOLUTE NEUTROPHILS 3.3 thou/uL (1.6-8.1); BASOPHILS 1.2 %; EOSINOPHILS 1.3 %; HEMATOCRIT 30.9 % (42.0-52.0); HEMOGLOBIN 10.5 gm/dL (14.0-18.0); LYMPHOCYTES 23.2 %; MCH 30.2 pg (26.0-34.0); MCHC 33.9 g/dL (28.0-37.0); MCV 89.1 fL (80.0-100.0); MPV 6.8 fl. (7.2-11.1); NUCLEATED RBCS 0 /100WBC; PLATELET COUNT* 214 thou/uL (150-400); POLYS 70.3 %; RBC 3.47 mil/uL (4.50-6.00); WBC 4.7 thou/uL (4.0-11.0)
[2021-09-23 06:02] LABS: CALCIUM 7.5 mg/dL (8.5-10.1); CREATININE 0.4 mg/dL (0.6-1.3); MAGNESIUM 1.9 mg/dL (1.8-2.4); POTASSIUM 3.2 mmol/L (3.5-5.1); TOTAL BILIRUBIN 0.6 mg/dL (<0.1-1.0); TOTAL PROTEIN 5.2 g/dL (6.4-8.2)
[2021-09-23 10:00] LABS: BE 5.9 mmol/L (-2 to +3); PCO2 37.8 mmHg (35.0-45.0); pH 7.507 (7.340-7.450)
--- NOTE | 2021-09-23 10:12 | NUR ---
ICU Update: Spoke to Anitha from [facility] who stated that they have 1 open bed and patient should be picked up from our facility at noon. Physician, nursing and SW on case notified. CM will fax updated clinicals, dc summary and med list to [phone] (fax) and will arrange ambulance transport. CM to update family on plan of care. [facility]itha/[facility] to continue to follow
--- NOTE | 2021-09-23 11:25 | EKG ---
[place] [address] ELECTROCARDIOGRAM REPORT Name: ARIANNADILIP MILNER Room: [address] ADM IN M.R.#: [id number] Admission: 08/22/21 Attend Phys: Dick Carmichael, Discharge: Date of : 74 Date of Service: 09/23/21 0850 Report #: [id number] THIS REPORT FOR: //name// [facility] Test Date: 2021-09-23 Test Time: 08:50:08 Pat Name: DILIP KELLER Department: Room: [address] Gender: M Cyber Analyst: KF : 1970 Requested By: Lynn Shields Order Number: [id number] Reading MD: Jet Condon Measurements Intervals [place] Rate: 74 P: 33 WI: 176 QRS: -3 QRSD: 102 T: -48 QT: 408 QTc: 453 Interpretive Statements Sinus rhythm Left ventricular hypertrophy Borderline T abnormalities, diffuse leads Compared to ECG 09/17/2021 17:16:10 Left ventricular hypertrophy now present Sinus tachycardia no longer present T-wave abnormality still present Electronically Signed On 09-23-2021 11:25:38 COMPUTER SYSTEMS ENGINEER by Jet Condon [email or web address] <ELECTRONICALLY SIGNED> By: Jet Condon MD, FAC 09/23/21 1125 0850 0850 Jet Condon MD, [facility] /EPI
--- NOTE | 2021-09-23 13:15 | NUR ---
REPORT GIVEN TO CYNDI @ [facility]. PT TRANSPORTED PER EMS. PT GIVEN PRN MEDICATION. REPORT GIVEN TO MEDIC AND REVIEWED MEDICATIONS AND RATES AND HOW TO WORK PUMPS. DROVE AHEAD TO FACILITY. PT DISCHARGED @ 1315. BELONGINGS TAKEN HOME WITH .
--- NOTE | 2021-09-23 13:21 | NUR ---
CM FAXED DC PACKET TO DAMIÁN AT [facility], ALSO HAD THANH ASH, TO EMAIL DAMIÁN CONT TO STATE SHE WASNT RECEIVING PACKET. CM ARRANGED EMT VIA [facility]. PT NOTIFED PT , WHO WAS AT BEDSIDE OF TRANSFER TIME. RN PROVIDED NUMBER TO CALL REPORT. US PRINTED CHART COPY.
== END 2021-09-23 13:15 | DRG 3 ==
LOC: M.ERS 23:47 → M.TBA-ER 08-22 01:51 → M.ORTHSURG 08-22 01:51 → M.ICU 08-22 01:51 → M.ORTHSURG 08-22 05:59 → M.ICU 08-24 12:06
PROVIDERS: Family Medicine; Internal Medicine; Internal Medicine Critical Care Medicine; Nurse Practitioner Family; Pediatrics; Personal Emergency Response Attendant; ADMIT Internal Medicine; ATTEND Internal Medicine
PROC: 5A0935A Assistance with Respiratory Ventilation, Less than 24 Consecutive Hours, High Flow/Velocity Cannula (ICD-10-PCS; 2021-08-22)
PROC: 5A09357 Assistance with Respiratory Ventilation, Less than 24 Consecutive Hours, Continuous Positive Airway Pressure (ICD-10-PCS; 2021-08-22)
PROC: 5A0935A Assistance with Respiratory Ventilation, Less than 24 Consecutive Hours, High Flow/Velocity Cannula (ICD-10-PCS; 2021-08-23)
PROC: 5A1955Z Respiratory Ventilation, Greater than 96 Consecutive Hours (ICD-10-PCS; 2021-08-24)
PROC: 0BH17EZ Insertion of Endotracheal Airway into Trachea, Via Natural or Artificial Opening (ICD-10-PCS; 2021-08-24)
PROC: 5A0935A Assistance with Respiratory Ventilation, Less than 24 Consecutive Hours, High Flow/Velocity Cannula (ICD-10-PCS; 2021-08-24)
PROC: 5A09357 Assistance with Respiratory Ventilation, Less than 24 Consecutive Hours, Continuous Positive Airway Pressure (ICD-10-PCS; 2021-08-24)
PROC: XW033H5 Introduction of Tocilizumab into Peripheral Vein, Percutaneous Approach, New Technology Group 5 (ICD-10-PCS; principal; 2021-08-26)
PROC: 0B21XEZ Change Endotracheal Airway in Trachea, External Approach (ICD-10-PCS; 2021-09-06)
PROC: 02HV33Z Insertion of Infusion Device into Superior Vena Cava, Percutaneous Approach (ICD-10-PCS; 2021-09-09)
PROC: 0B110F4 Bypass Trachea to Cutaneous with Tracheostomy Device, Open Approach (ICD-10-PCS; 2021-09-13)
PROC: 0DH68UZ Insertion of Feeding Device into Stomach, Via Natural or Artificial Opening Endoscopic (ICD-10-PCS; 2021-09-13)
PROC: 0W9600Z Drainage of Neck with Drainage Device, Open Approach (ICD-10-PCS; 2021-09-16)
DX: A41.9 Sepsis, unspecified organism (principal); U07.1 COVID-19; N17.0 Acute kidney failure with tubular necrosis; J12.82 Pneumonia due to coronavirus disease 2019; J80 Acute respiratory distress syndrome; I26.99 Other pulmonary embolism without acute cor pulmonale; N39.0 Urinary tract infection, site not specified; I31.9 Disease of pericardium, unspecified; J95.01 Hemorrhage from tracheostomy stoma; I48.92 Unspecified atrial flutter; R71.0 Precipitous drop in hematocrit; I82.612 Acute embolism and thrombosis of superficial veins of left upper extremity; E87.70 Fluid overload, unspecified; R73.9 Hyperglycemia, unspecified; J98.01 Acute bronchospasm; D69.6 Thrombocytopenia, unspecified; D72.819 Decreased white blood cell count, unspecified; K59.00 Constipation, unspecified; Y83.8 Other surgical procedures as the cause of abnormal reaction of the patient, or of later complication, without mention of misadventure at the time of the procedure; I48.0 Paroxysmal atrial fibrillation; J98.2 Interstitial emphysema; T38.0X5A Adverse effect of glucocorticoids and synthetic analogues, initial encounter; Y92.89 Other specified places as the place of occurrence of the external cause